=== PATIENT | male | born 1950 | race Caucasian/White ===

== ENCOUNTER 2016-05-21 10:45 | Inpatient (IN) | payer BC, MEDICARE ==
[~2016-05-21] VITALS: Ht 177.8 cm; Wt 82.6 kg
[~2016-05-21 10:45] MED LIST: ASPI81TA85 PO; ATOR1TAB19 PO; FINA5TAB2 PO; LITH300C PO; MULTCAP PO; MYRB25TA PO; ROZE8TAB9 PO; VITACAP31
[2016-05-21] MEDS ORDERED: SILE3TAB3 PO (11:04)
[2016-05-21] MEDS ORDERED: TERB250T57 PO (11:04)
[2016-05-21 11:34] LABS: MEAN CORPUSCULAR HEMOGLOBIN 32.2 pg (27.0-33.0); MEAN CORPUSCULAR HGB CONC 33.1 g/dl (32.0-36.5); MEAN CORPUSCULAR VOLUME 97.2 fl (80.0-96.0); PLATELET COUNT, AUTOMATED 203 k/mm3 (150-450); RED CELL DISTRIBUTION WIDTH 12.9 % (11.5-14.5); WHITE BLOOD COUNT 12.9 K/mm3 (4.0-10.0)
[2016-05-21 11:36] LABS: INR 1.06
[2016-05-21 11:48] LABS: BANDS 1 % (< 11)
[2016-05-21 11:49] LABS: ANISOCYTOSIS 1+
[2016-05-21 11:51] LABS: ANION GAP 6 MEQ/L (8-16); BLOOD UREA NITROGEN 26 MG/DL (7-18); CALCIUM LEVEL 10.5 MG/DL (8.8-10.2); CARBON DIOXIDE LEVEL 27 MEQ/L (21-32); CHLORIDE LEVEL 110 MEQ/L (98-107); CREATININE FOR GFR 2.04 MG/DL (0.70-1.30); GLUCOSE, FASTING 117 MG/DL (80-110); POTASSIUM SERUM 4.5 MEQ/L (3.5-5.1); SODIUM LEVEL 143 MEQ/L (136-145)
[2016-05-21] MEDS ORDERED: levETIRAcetam INJection 1,000 MG in D5W 100 ML IV ONE (12:30)
[2016-05-21] MEDS ORDERED: FINA5TAB2 PO (12:55)
[2016-05-21] MEDS ORDERED: TYLE325T5 PO (12:55)
[2016-05-21] MEDS ORDERED: VITMTA PO (12:55)
[2016-05-21] MEDS ORDERED: ONDANSETRON 4 MG TAB (S0181) PO PRN (13:15)
[2016-05-21] MEDS ORDERED: ACETAMINOPHEN TAB 650MG DOSE (2X325MG) PO PRN (13:15)
[2016-05-21] MEDS ORDERED: PERCOCET 5MG/325MG TAB PO PRN (13:15)
[2016-05-21] MEDS ORDERED: ONDANSETRON 4MG/2ML VIAL (J2405) IV PRN (13:15)
[2016-05-21] MEDS: NS 1,000 ML IV SCH ×2 (13:30→23:36)
--- NOTE | 2016-05-21 13:52 | HPEPDOC ---
Medical History and Physical Date of Admission May 21, 2016 at 13:05 History and Physical HISTORY AND PHYSICAL Date of admission: 05/21/2016 PCP: Dr. Bird Powell Chief complaint: Episodes of confusion and difficulty with his speech HPI: 65-year-old male with bipolar disorder, hyperlipidemia, BPH, CKD stage 3, known lazy right eye who presents with 3-4 weeks of "spells." He states that during these spells, he notices changes in his speech, such as delay in speech, slurring of speech, and difficulty finding words. He also experiences confusion with these episodes. He is unable to identify anything that triggers these episodes. He also notes that they seem to self resolve. He is accompanied by one of the secretaries at the [facility], and she states that it appears this has all gotten worse since . 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 They drove him back to the residential home. The patient also has resting tremors, but he thinks that this is something he's had for a long time and he believes it's related to the lithium. Of note, the patient states that this cyst in his head is something he has known about, and he even saw Dr. Stern for it back in 2005. He states that he usually ends up seeing one of the PAs at their office, and he thinks it is approximately 1 year ago when he saw the PA. Also of note, the patient states that the psychiatrist he follows with for his lithium is in [place]. He states that his levels are checked once a year and he is due to have it checked again in September. He has never previously had any issues with his lithium level being too high. In the emergency department, he was evaluated by Dr. Cabrera, and loaded with Keppra.. Past medical history: Bipolar disorder, hyperlipidemia, BPH, right lazy eye, CK D stage III Past surgical history: Tonsillectomy, hernia repair Family history: He states that his parents are 94 years old and 96 years old and are both in good health Social history: He denies any tobacco use. He states he drinks approximately 1 alcoholic drink weekly. 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 Allergies: No known drug allergies Review of systems: General: Negative for fever and chills Eyes: Negative for vision changes and ocular discharge ENT: Negative for sore throat and nose bleed Cardiovascular: Negative for chest pain. Positive for palpitations. Respiratory: Negative for cough. Positive for shortness of breath GI: Negative for nausea, vomiting, diarrhea, constipation Musculoskeletal: Positive for chronic back pain Neuro: Negative for headache, numbness, tingling. Positive for intermittent dizziness, as well as changes in speech and confusion Psych: Negative for depression and suicidal ideation Endocrine: Positive for polyuria and polydipsia : Negative for dysuria Heme: Negative for bruising and bleeding Home meds: See below Physical exam: Vital signs: Vital Sign - Last 24 Hours 05/21/16 05/21/16 05/21/16 05/21/16 10:45 10:52 11:12 11:15 Temp 97.8 97.8 Pulse 76 Resp 16 16 B/P 156/83 156/83 144/76 Pulse Ox 99 99 93 O2 Delivery Room Air Room Air 05/21/16 05/21/16 05/21/16 05/21/16 11:27 11:42 11:45 11:57 Pulse 72 B/P 134/69 132/72 132/69 05/21/16 05/21/16 05/21/16 05/21/16 12:04 12:05 12:06 12:12 Pulse 73 79 83 B/P 132/68 145/72 132/68 155/72 145/67 145/67 145/72 05/21/16 05/21/16 12:15 12:27 Pulse 72 B/P 175/79 Pulse Ox 97 Gen.: awake, alert, no acute distress Eyes: disconjugate right gaze (known and chronic), normal sclera ENT: Dry mucous membranes Cardiovascular: RRR, no murmurs rubs or gallops Lungs: clear to auscultation bilaterally, no rales, rhonchi, or wheeze Abdomen: Soft, NT/ND, normal BS Musculoskeletal: normal range of motion Extremities: No peripheral edema Neuro: alert and oriented 3, normal speech, no focal deficits, no arm drift, no facial droop, finger to nose was more challenging on left than right but he was ablel to complete it on both Psych: Normal mood with congruent affect Labs and radiology: See below Creatinine 2.04 Myra level [address] read of the [address] of the head shows huge right subarachnoid cyst Assessment and plan: 65-year-old male with bipolar disorder, hyperlipidemia, BPH, CKD stage 3, known lazy right eye who presents with 3-4 weeks of "spells." He states that during these spells, he notices changes in his speech, such as delay in speech, slurring of speech, and difficulty finding words. He is admitted for a TIA/CVA workup, acute on chronic kidney disease, and chronic lithium toxicity. 1. Neurologic symptoms: The patient presents with a variety of neurologic symptoms including intermittent dizziness, confusion, and changes to his speech. It is quite possible that part of this is secondary to his chronic lithium toxicity. However, the CT of the head does show a huge right subarachnoid cyst, for which he has been seen by Dr. Cabrera in the emergency department. Dr. Cabrera will continue to follow the patient in consultation and manage that issue. Additionally, we will complete a TIA/CVA workup for the patient, as well as get an EEG to rule out seizure. MRI/MRA of the head and neck , as well as echo and fasting lipid panel have been ordered. The patient will be started on daily ASA. He was loaded with Keppra in the emergency department , and we'll continue him on 500mg by mouth twice a day. 2. Acute on chronic kidney disease stage III: The patient's baseline creatinine is in the mid ones. He presents with a creatinine of 2.04, and is obviously dry upon exam. We will hydrate him, and recheck his BMP. 3. Chronic lithium toxicity and bipolar disorder: The patient has been on lithium 300 mg for years. He states that he has not had it checked since last summer, at which point he reports that his levels were fine. We will hold his lithium for the time being, and hydrate him. We will also check a right upper quadrant ultrasound to rule out DIANA secondary to his lithium use. 4. Hyperlipidemia: Continue home statin 5. BPH: Continue home Proscar. We will be holding his home myrbetriq as we do not have this on formulary. DVT prophylaxis: SCDs Dispo: admit as an inpatient to the service of Dr. Azar CODE STATUS: Full code Vital Signs see above Laboratory Data Labs 24H Laboratory Tests 2 05/21/16 11:17: Activated Partial Thromboplast Time 36.0, Anion Gap 6L, Anisocytosis 1+, Atypical Lymphocytes 3, Band Neutrophils 1, White Blood Count 12.9H, Red Blood Count 4.57, Hemoglobin 14.7, Hematocrit 44.4, Mean Corpuscular Volume 97.2H, Mean Corpuscular Hemoglobin 32.2, Mean Corpuscular Hemoglobin Concent 33.1, Red Cell Distribution Width 12.9, Platelet Count 203, Neutrophils (%) (Auto) , Lymphocytes (%) (Auto) , Monocytes (%) (Auto) , Eosinophils (%) (Auto) , Basophils (%) (Auto) , Neutrophils # (Auto) , Lymphocytes # (Auto) , Monocytes # (Auto) , Eosinophils # (Auto) , Basophils # (Auto) , Blood Urea Nitrogen 26H, Creatinine 2.04H, Sodium Level 143, Potassium Level 4.5, Chloride Level 110H, Carbon Dioxide Level 27, Calcium Level 10.5H, Total Creatine Kinase 306, Creatine Kinase MB 6.7H, Creatine Kinase MB Relative Index 2.18, Glomerular Filtration Rate 35.0L, Large Unclassified Cells # , Large Unclassified Cells % , Myra Level 2.00H, Lymphocytes (Manual) 10L, Macrocytosis 1+, Neutrophils 86H, Platelet Estimate NORMAL, Prothromb Time International Ratio 1.06, Prothrombin Time 13.9, Troponin I < 0.02 CBC/BMP Laboratory Tests 05/21/16 11:17 Calcium Level 10.5 H, Total Creatine Kinase 306, Red Blood Count 4.57, Mean Corpuscular Volume 97.2 H, Mean Corpuscular Hemoglobin 32.2, Mean Corpuscular Hemoglobin Concent 33.1, Red Cell Distribution Width 12.9, Neutrophils (%) (Auto ) , Lymphocytes (%) (Auto) , Monocytes (%) (Auto) , Eosinophils (%) (Auto) , Basophils (%) (Auto) , Neutrophils # (Auto) , Lymphocytes # (Auto) , Monocytes # (Auto) , Eosinophils # (Auto) , Basophils # (Auto) Home Medications Scheduled Atorvastatin Calcium (Atorvastatin Calcium) 10 Mg Tab 10 MG PO QHS Finasteride (Finasteride) 5 Mg Tab 5 MG PO QHS Myra Carbonate (Myra Carbonate) 300 Mg Cap 300 MG PO TID Mirabegron Base (Myrbetriq) 25 Mg Tab 25 MG PO QHS Multivitamins *[facility] STOCKED* (Thera M Plus *[facility] STOCKED*) 1 Tab Tab 1 TAB PO QHS Scheduled PRN (Silenor) 3 Mg Tab 6 MG PO QHS PRN PRN SLEEP Acetaminophen (Tylenol) 325 Mg Tab 650 MG PO Q4H PRN PRN PAIN Allergies Coded Allergies: No Known Drug Allergy (Verified Allergy, Unknown, 06/12/12) ISRAEL ALFORD May 21, 2016 13:52
[2016-05-21] MEDS ORDERED: LORazepam 2 MG/ML VIAL (J2060) IV STA (19:07)
--- NOTE | 2016-05-21 19:51 | ECGEPIP ---
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
--- NOTE | 2016-05-21 21:10 | REPUSA ---
CLINICAL HISTORY: Aphasia. TECHNIQUE: Three dimensional [id number]-fx-jmnxmw angiography is performed of the [place]. The tirso dy was performed without IV contrast agent. FINDINGS: The supraclinoid portions of the internal carotid arteries are of normal shape. The normal bifurcation is seen. The middle cerebral arteries are unremarkable in appearance. The posterior circu lation is visualized and shows no evidence of occlusion or aneurysm formation. The basilar tip is see n and shows no aneurysm formation. There is no evidence of beading to suggest vasculitis. IMPRESSION: MRA of the [place] is within normal limits. Thank you for your kind referral of this patient.
[2016-05-21 21:15] LABS: CALCIUM LEVEL 9.8 MG/DL (8.8-10.2); CREATININE FOR GFR 1.86 MG/DL (0.70-1.30); GLOMERULAR FILTRATION RATE 38.9 (>49); POTASSIUM SERUM 4.2 MEQ/L (3.5-5.1)
[2016-05-21 21:40] VITALS: BP 138/78
[2016-05-21 21:41] VITALS: BP 158/82
[2016-05-21 21:43] VITALS: BP 170/92
[2016-05-21] MEDS: levETIRAcetam 250MG TABLET (KEPPRA) PO SCH (23:35)
[2016-05-21] MEDS: ASPIRIN 81 MG ENTERIC TAB PO SCH (23:35)
[2016-05-21] MEDS: ATORVASTATIN 10 MG TAB PO SCH (23:35)
[2016-05-21] MEDS: FINASTERIDE 5 MG TAB PO SCH (23:36)
[2016-05-21] MEDS: MULTIVITAMINS/MINERALS THERAP 1 TAB PO SCH (23:36)
[2016-05-21 23:59] VITALS: BP 162/78
[2016-05-22 04:45] VITALS: BP 152/78
--- NOTE | 2016-05-22 05:40 | REP ---
REASON: Dizziness with stroke like symptoms. COMPARISON: 10/26/2006 which is the latest prior. The technique utilized in obtaining the radiograph has magnified the cardiac silhouette and accentuated the interstitial markings. FINDINGS: The superior mediastinal structures are midline. The cardiac silhouette is unremarkable in size, shape, and position. The diaphragmatic surfaces of the lungs are regular, and the costophrenic angles are clear. The pulmonary fregoso are clear. The imaged osseous structures are intact. IMPRESSION: There is no acute cardiopulmonary disease. Signed by Christopher Cook DO 05/22/2016 12:04 P
[2016-05-22 05:51] LABS: MEAN CORPUSCULAR HEMOGLOBIN 32.2 pg (27.0-33.0); MEAN CORPUSCULAR HGB CONC 32.6 g/dl (32.0-36.5); MEAN CORPUSCULAR VOLUME 98.9 fl (80.0-96.0); PLATELET COUNT, AUTOMATED 225 k/mm3 (150-450); RED CELL DISTRIBUTION WIDTH 12.9 % (11.5-14.5); WHITE BLOOD COUNT 12.8 K/mm3 (4.0-10.0)
--- NOTE | 2016-05-22 05:57 | REP ---
REASON: Stroke like symptoms. PRIORS: None. There is a large, and in fact, huge cystic structure on the right measuring 8.2 x 7.1 cm. This large cyst is causing thinning of the right temporal and parietal bones. The cyst is causing compression of the ipsilateral lateral ventricle, however, there is no evidence of ventricular obstruction. There is no evidence of an acute intracranial hemorrhage. The deep white matter is age appropriate. IMPRESSION: 1. There is what is most consistent with a large, and in fact, huge right hemispheric arachnoid cyst arising from the sylvian fissure. This cystic structure is causing resultant findings as described above. 2. No evidence of acute intracranial hemorrhage or other pathology. Signed by Christopher Cook DO 05/22/2016 12:04 P
[2016-05-22 06:03] LABS: CALCIUM LEVEL 9.8 MG/DL (8.8-10.2); CREATININE FOR GFR 1.79 MG/DL (0.70-1.30); GLOMERULAR FILTRATION RATE 40.6 (>49); POTASSIUM SERUM 3.8 MEQ/L (3.5-5.1)
[2016-05-22 08:00] VITALS: BP 147/72
[2016-05-22] MEDS ORDERED: D5W 1,000 ML IV SCH ×2 (08:15→09:30)
--- NOTE | 2016-05-22 08:59 | REP ---
LIMITED ABDOMINAL ULTRASOUND: CLINICAL: Abdominal distension with history of chronic lithium use. TECHNIQUE: Real-time mcpherson scale ultrasound examination using curved array transducer. FINDINGS: Liver and visualized pancreas are normal in contour, size, and echogenicity without focal hepatic or pancreatic lesions identified. The gallbladder is normal and without gallstones, wall thickening, or pericholecystic fluid. No biliary ductal dilatation is appreciated and the common bile duct measures 5 mm in diameter. The right kidney is normal in reniform shape without hydronephrosis and measures 10.4 x 5.0 x 5.1 cm. No ascites in the visualized right upper quadrant. IMPRESSION: Normal right upper quadrant ultrasound examination. Signed by Saurabh Allen MD 05/26/2016 11:05 A
[2016-05-22] MEDS: ASPIRIN 81 MG ENTERIC TAB PO SCH (09:20)
[2016-05-22] MEDS: levETIRAcetam 250MG TABLET (KEPPRA) PO SCH ×2 (09:20→21:11)
[2016-05-22 09:26] LABS: LITHIUM LEVEL 1.31 MEQ/L (0.60-1.20)
[2016-05-22 13:57] LABS: CALCIUM LEVEL 10.6 MG/DL (8.8-10.2); CREATININE FOR GFR 1.99 MG/DL (0.70-1.30); POTASSIUM SERUM 4.8 MEQ/L (3.5-5.1)
--- NOTE | 2016-05-22 14:46 | IPN ---
DATE: 05/22/2016 Time patient was seen was this morning at 08:15. Patient has been seen and examined at the bedside. No acute events overnight. The patient stated that he has improved in terms of his slurred speech and he is no longer confused. The patient also stated that he has been on lithium for at least 12 years and he had a long discussion with his primary care and his psychiatrist regarding lithium and he stated that he saw someone in [place], whose name is Conner Sanchez, who stated that he should be kept on lithium. Otherwise, the patient denies any weakness on any side of his body, any additional slurred speech or any changes with vision, smell, hearing or taste. Denies any other current new complaints. PHYSICAL EXAMINATION: VITAL SIGNS: Temperature 97.2, pulse 78, respirations 19, blood pressure 147/72, oxygen saturating at 99% on room air. GENERAL: Patient is a pleasant elderly male who looks younger than his age. However, he was having tremors all over his body. Has some slurred speech and does have a lazy eye on the left side. HEENT: Normocephalic. Atraumatic. Extraocular muscles intact. Mucous moist. NECK: Supple. No lymphadenopathy. CARDIOVASCULAR: Regular rate and rhythm, S1 and S2, no murmurs, rubs or gallops. LUNGS: Clear to auscultate bilaterally. No wheezing, rales or rhonchi. ABDOMEN: Positive bowel sounds. Soft, nontender. Nondistended. No peritoneal signs. No ecchymosis. EXTREMITIES: No edema, clubbing or cyanosis. SKIN: Warm and dry. NEURO: The patient has reduced peripheral vision bilaterally. In addition he has hyperspasticity, hyperreflexia, and reduced muscle strength bilaterally. LABORATORIES: WBC 12.8, hemoglobin 14.3, hematocrit 43.8 with a platelet count of 225, and MCV of 98.9. Sodium 154, potassium 3.8, chloride 125, bicarb 26, BUN 22, creatinine 1.79, GFR 40.6, fasting glucose 114, calcium 9.8, magnesium 3, triglycerides 88, cholesterol 117, LDL 66.4, HDL 33. TSH was 0.673. Coagulations: Yesterday PT was 13.9, INR 1.06, PTT 36. The patient's toxicology screen lithium yesterday was 2, this morning was 1.31. No cultures. The patient had an abdominal ultrasound yesterday which shows normal right upper quadrant ultrasound examination. The patient also had a brain MRA yesterday, which shows [place] is within normal limits. The patient will have a repeat MRI of the brain this morning. MRI was not completed yesterday due to the patient could not tolerate both MRA and MRI at the same time. The patient had a portable chest x-ray yesterday, which shows no acute process. The patient had a CT scan yesterday, which was consistent with a large, huge right hemispheric arachnoid cyst from Sylvian fissure and the cystic structure also causing thinning of the right temporal and parietal bones, and also causing compression of the ipsilateral lateral ventricle. However, no evidence of ventricular obstruction. ASSESSMENT/PLAN: 65-year-old male with a past medical history of bipolar, hyperlipidemia, BPH, right lazy eye, chronic kidney disease stage III, who presented with: 1. Neurological changes with confusion and slurred speech, likely secondary to his lithium toxicity, acute versus chronic, versus large subarachnoid cyst, versus metabolic encephalopathy. Dr. Cabrera from neurosurgery was consulted and recommended MRI/MRA of the head and the neck and also CT angio as well as an EEG and a lithium panel. The patient also has been loaded with Keppra. Currently will continue neuro checks every 4 hours. Continue seizure precautions. While finishing the patient's MRI this morning, due to the patient could not tolerate both MRI and MRA yesterday, and in addition, neurology Dr. Merino has been consulted. Will follow his recommendation as well. The patient does follow with Dr. Stern as an outpatient. In addition, lithium level came back to be reduced to yesterday. Yesterday is was 2, today is 1.3. The patient also reports improvement in his symptoms. Will continue to monitor the patient. 2. Acute on chronic kidney disease, stage III. The patient's creatinine has improved from 2.0 to 1.7. 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 The patient has been started on D5W. Will trend the patient's BMP and will stop D5W once the BMP has returned to normal range. 3. Chronic lithium toxicity and bipolar disorder. The patient stated that he had a discussion with primary care and also his psychiatrist and his psychiatrist recommended not to stop his lithium in the past. Therefore, he has kept on that for at least 12 years. In addition, the right upper quadrant ultrasound did not show any abnormal findings. Therefore, the patient does not have DIANA. Will continue to monitor. 4. Hyperlipidemia. Continue home statin. 5. Benign prostatic hypertrophy (BPH). Continue Proscar. 6. Deep vein thrombosis (DVT) prophylaxis. Sequential compression devices (SCD). DISPOSITION: Will rule out the etiology of the patient's symptoms. Will continue to hold lithium. Will obtain CT angio once the patient's kidney function has improved and will follow Dr. Merino and Dr. Cabrera's recommendation. The patient is a FULL CODE. The patient has been discussed with attending doctor, Dr. Azar. My preceptor for this patient encounter was Dr. Suraj Azar. The preceptor was physically present in the building during the encounter and was fully available. As needed, all aspects of the patient interview, examination, medical decision making process, and medical care plan development were reviewed and approved by the preceptor. The preceptor is aware and concurs with the plan as stated in the body of this note and will attest to such by his/her cosignature.
[2016-05-22 16:00] VITALS: BP 149/76
[2016-05-22 16:42] LABS: CALCIUM LEVEL 10.4 MG/DL (8.8-10.2); CREATININE FOR GFR 1.95 MG/DL (0.70-1.30); GLOMERULAR FILTRATION RATE 36.8 (>49); POTASSIUM SERUM 4.3 MEQ/L (3.5-5.1)
--- NOTE | 2016-05-22 19:03 | REP ---
MRI study of the brain without contrast: History: Aphasia. I am informed by the technologist that these images representing a partial MRI study of the brain were found on the MR imaging modality unsent to or PACS system. The MR ANGIO performed at the same time has already been dictated. Technique: Axial turbo spin-echo and FLAIR imaging is acquired. The sequences were repeated because of motion artifact. The remainder the exam could not be accomplished due to the patient's inability to cooperate and remain motionless. The exam was therefore aborted. Comparison study: MRI study of the brain from 05/18/2005. Findings: The previously noted large subarachnoid cyst is again seen on the right side in the temporal-parietal distribution unchanged from the 2005 prior study when it measured up to 11 cm in dimension. There is subtle mass effect and shift to the midline and to the left and there are erosive changes on the inner table of the skull in the right parietal region again unchanged. Ventricular size is unchanged. No new lesion is seen on these images. There is some motion artifact. Impression: Supratentorial subarachnoid cyst 11 cm in greatest diameter persists in the right temporal and parietal distribution unchanged from the 2005 prior study. Motion artifact degrades images. Incomplete study. Signed by Trino Alvarado MD 05/22/2016 07:23 P
[2016-05-22 20:43] VITALS: BP 140/73
[2016-05-22 20:59] LABS: CALCIUM LEVEL 9.8 MG/DL (8.8-10.2); CREATININE FOR GFR 1.91 MG/DL (0.70-1.30); GLOMERULAR FILTRATION RATE 37.7 (>49); POTASSIUM SERUM 4.2 MEQ/L (3.5-5.1)
[2016-05-22] MEDS: FINASTERIDE 5 MG TAB PO SCH (21:11)
[2016-05-22] MEDS: ATORVASTATIN 10 MG TAB PO SCH (21:11)
[2016-05-22] MEDS: MULTIVITAMINS/MINERALS THERAP 1 TAB PO SCH (21:11)
[2016-05-22] MEDS: D5W 1,000 ML IV SCH (21:12)
[2016-05-22 23:59] VITALS: BP 134/70
[2016-05-23 04:45] VITALS: BP 116/63
[2016-05-23 05:47] LABS: MEAN CORPUSCULAR HGB CONC 31.8 g/dl (32.0-36.5); MEAN CORPUSCULAR VOLUME 100.5 fl (80.0-96.0); PLATELET COUNT, AUTOMATED 219 k/mm3 (150-450); WHITE BLOOD COUNT 12.9 K/mm3 (4.0-10.0)
[2016-05-23 05:53] LABS: CALCIUM LEVEL 9.6 MG/DL (8.8-10.2); CREATININE FOR GFR 1.92 MG/DL (0.70-1.30); GLOMERULAR FILTRATION RATE 37.5 (>49); MAGNESIUM LEVEL 2.7 MG/DL (1.8-2.4); POTASSIUM SERUM 3.7 MEQ/L (3.5-5.1)
--- NOTE | 2016-05-23 06:03 | IPN ---
DATE: 05/22/2016 Time patient was seen was this morning at 0815 hours. Patient has been seen and examined at bedside. No acute event overnight. Patient admits to feeling somewhat better. DICTATION ENDED My preceptor for this patient encounter was Suraj zAar MD. The preceptor was physically present in the building during the encounter and was fully available. As needed, all aspects of the patient interview, examination, medical decision making process, and medical care plan development were reviewed and approved by the preceptor. The preceptor is aware and concurs with the plan as stated in the body of this note and will attest to such by his/her co-signature.
[2016-05-23] MEDS: D5W 1,000 ML IV SCH (06:42)
[2016-05-23 07:23] LABS: BANDS 1 % (< 11); POIKILOCYTOSIS 1+
--- NOTE | 2016-05-23 07:27 | CR ---
DATE OF CONSULTATION: 05/22/2016 REFERRING PHYSICIAN: Dr. Marily Garcia REASON FOR CONSULTATION: Dizziness, tremor and slurred speech. HISTORY OF PRESENT ILLNESS: The patient is a 65-year-old male with history of bipolar disorder and chronic kidney disease who developed episodes of slurred speech, dizziness and difficulty finding words. He also felt confusion during these episodes. These episodes started 10 days ago. He was told by a hand tool filer at [employer] that he should seek medical attention. The patient has a history of a right-sided brain cyst since 2001. He was seen by neurosurgery at that time who did not recommend any surgical intervention. This cyst remains stable compared to his 2006 MRI brain until his current MRI brain. He has intermittent mild neck pain. He denies any headaches or back pain. He denies any numbness or weakness in his arms and legs. He denies any difficulty with memory. He denies any falls or loss of consciousness. PAST MEDICAL HISTORY: 1. Bipolar disorder. 2. Dyslipidemia. 3. Prostate enlargement. 4. Chronic kidney disease stage III. 5. Left eye exotropia. 6. Tonsillectomy. 7. Hernia repair. CURRENT MEDICATIONS: - lithium - finasteride 5 mg by mouth daily SOCIAL HISTORY: Denies smoking or illicit drugs. He drinks alcohol socially. 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 FAMILY HISTORY: His parents are 94 and 96 years old and are in good health. ALLERGIES: None. REVIEW OF SYSTEMS: All systems were reviewed and were found to be noncontributory except as mentioned in history present illness. PHYSICAL EXAMINATION: Temperature 96.6, pulse 75, respiratory rate 22, blood pressure 149/76, 98% saturation on room air. Heart: Regular rate rhythm. Lungs: Clear to auscultation. Abdomen: Soft, nontender, nondistended. Neurological Exam: Patient is awake, alert, oriented to month, year and day of week. He is unable to tell me the exact date. He is oriented to place and name of president. Normal speech, comprehension and repetition. Extraocular muscles are intact except he has left eye congenital exotropia. No facial weakness. Tongue and uvular are midline. 5/5 strength in all four extremities. Deep tendon flexes 1+ throughout. Normal sensation. His gait is unsteady. He has bilateral hand and leg asterixis. DIAGNOSTIC STUDIES: His MRI scan of brain was reviewed and compared to his scan in 2006 and showed a large right parietal cyst which may represent congenital malformation such as porencephaly or schizencephaly. This is unchanged and stable. His lithium level was 2.0 and decreased to 1.3. WBCs were 12.8 with sodium 155 and creatinine 2.04 and decreased to 1.95. ASSESSMENT: 1. Suspected lithium toxicity. 2. 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 Less likely differential diagnosis includes arachnoid cyst in the right parietal lobe. 3. Episode of dizziness, slurred speech and tremor related to lithium toxicity. 4. Seizures are less likely. PLAN: 1. Await his electroencephalogram (EEG). 2. If EEG does not show any epileptiform abnormalities, will discontinue Keppra. 3. 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 It remains unchanged compared to his MRI brain of 11 years ago in 2006. 4. I would advise him to talk to his psychiatrist to see if they can lower the dose of his lithium as it may help prevent future episodes of toxicity with his history of chronic kidney disease. Alternate medications for bipolar disorder such as Depakote, Trileptal, Lamictal or Tegretol should be considered. He will follow with his psychiatrist, Dr. Conner Sanchez, in [place], [place]. 5. Follow with our office with Chloé Francis in a couple of weeks after hospital discharge.
[2016-05-23 08:00] VITALS: BP 135/68
[2016-05-23] MEDS: ASPIRIN 81 MG ENTERIC TAB PO SCH (08:23)
[2016-05-23] MEDS: levETIRAcetam 250MG TABLET (KEPPRA) PO SCH ×2 (08:24→20:09)
[2016-05-23 12:00] VITALS: BP 144/79
[2016-05-23 16:00] VITALS: BP 130/70
--- NOTE | 2016-05-23 16:12 | EEG ---
DATE OF PROCEDURE: 05/22/2016 REFERRING PHYSICIAN: Dr. Suraj Azar DIAGNOSIS: Episodes of confusion. EEG NUMBER: [id number]. CLINICAL HISTORY: The patient is a 65-year-old male with a history of spells in which he notices changes in his speech, slurring of speech and difficulty finding words. He also experiences confusion with these episodes. He is unable to identify anything that triggers these episodes. They resolve on their own. He is currently taking Proscar, Keppra, etc. TECHNICAL DESCRIPTION: This digital EEG was recorded by 21 scalp, ear and two EKG electrodes and was reviewed in bipolar and referential montages following reformatting in 10-20 international electrode placement system. INTERPRETATION: The patient was noted to be in awake and drowsy states during this EEG. Resting awake background rhythm consisted of 5-6 Hz theta activity measuring 15-40 microvolts in amplitude with underlying 3-4 Hz delta activity. Slight attenuation of background rhythm was noted in the right central and parietal head region. Hyperventilation could not be performed. Stage I and II sleep was reviewed and was symmetric bilaterally. Photic stimulation remained unremarkable. EKG revealed normal sinus rhythm. Right central and parietal spikes and sharp waves were noted in wakefulness and stage II sleep. No clinical or electrographic seizures were recorded. CONCLUSION: This EEG in awake, drowsy states, stage I and II sleep is abnormal due to presence of generalized slowing and disorganization of background consistent with nonspecific diffuse cerebral dysfunction such as seen in encephalopathy due to multiple potential causes including toxic, metabolic, medication related, infectious, autoimmune, or multifocal structural abnormalities. In addition, right central and parietal voltage attenuation and epileptiform discharges were seen consistent with focal cortical, structural or functional abnormality with epileptic potential. Clinical correlation is recommended.
--- NOTE | 2016-05-23 16:26 | IPN ---
DATE: 05/23/2016 Time seen: 8:45 a.m. The patient has been seen and examined at bedside. No acute events overnight. The patient feels about the same today. Denies any increased weakness on any side of the body, any change of sensations. Still admits to a tremor of bilateral hands. Admits to some confusion and memory loss. Denies any fever or chills, any chest pain, trouble breathing, abdominal pain, nausea, vomiting, diarrhea or constipation. Denies any other current new complaints. PHYSICAL EXAMINATION: VITAL SIGNS: Temperature was 97.8, pulse 77, respirations 20, blood pressure 135/68, oxygen saturation 98% on room air. GENERAL: The patient is pleasant, elderly male who looks younger than his age. Does not appear to be in distress. However, does have a flat affect. Laying comfortably in bed with head elevated at 30 degrees. HEENT: Normocephalic, atraumatic. Extraocular motor was intact. However, the patient does have a lazy eye on the right side. Mucosal membranes moist. NECK: Supple. No neck lymphadenopathy. CARDIOVASCULAR: Regular rate and rhythm. 2/6 systolic heart murmur. LUNGS: Clear to auscultation bilaterally. No wheezes, rales or rhonchi. ABDOMEN: Positive bowel sounds, obese, no peritoneal signs. No ecchymosis. EXTREMITIES: No edema, clubbing or cyanosis. There were essential tremor in bilateral hands. SKIN: Warm and dry. NEUROLOGICAL: Cranial nerves II through XII intact. The patient also has hyperspasticity and reduced peripheral vision bilaterally. LABS: WBC 12.9, hemoglobin 14.2, hematocrit is 44.6, with a platelet count of 219 and MCV of 100.5. Sodium 115, potassium 3.7, chloride 117, bicarbonate 27, BUN 117, creatinine 1.92. GFR 37.5%. Fasting glucose 111. Osmolality serum and urine are pending. Calcium 9.6, magnesium was elevated 2.7. ADH level is currently pending. The patient has a repeat lithium level tomorrow, which is pending. No new cultures. No new imaging. ASSESSMENT AND PLAN: 65-year-old male with past medical history of bipolar, hyperlipidemia, benign prostatic hypertrophy (BPH), right lazy eye, chronic kidney disease stage III who presented with: 1. Neurological changes with confusion, slurred speech, tremor, likely secondary to lithium toxicity, acute versus chronic versus a large subarachnoid cyst versus metabolic encephalopathy. Dr. Merino from neurology was consulted and has seen the patient yesterday. He believes this is likely secondary to lithium toxicity and recommended that the patient should have a discussion with his psychiatrist regarding reducing the lithium dose due to he right now does have worsened renal function. Otherwise, Dr. Cabrera from neurosurgery was also initially consulted and recommended MRI and MRA of the head and neck, and also CT angio as well as EEG. Will followup with EEG and per neurology recommendation will stop the Keppra of EEG is normal. Otherwise will continue neuro checks every 4 hours for now. Continue seizure precaution. The patient did complete MRI finding this morning. Did not show any acute findings. Will also repeat lithium level tomorrow and the patient should followup with Dr. Stern as outpatient once the patient goes home. 2. Acute on chronic kidney disease, stage III. Kidney function has not improved much since yesterday. Still currently 1.9. 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 The patient also has hypernatremia which improved only slightly on D5W overnight. Dr. Hodgson from nephrology has been consulted. Has ordered urine osmolarity, serum osmolarity, ADH level and also urine sodium level. Will followup. Continue to monitor. 3. Chronic lithium toxicity and bipolar disorder. Dr. Merino from neurology has recommended the patient followup with psychiatrist again regarding change in the dose or change in the medication. Will continue to monitor. The patient did have a right upper quadrant ultrasound and did not show any acute findings. Will continue to monitor. 4. Hyperlipidemia. Continue home statin. 5. Benign prostatic hypertrophy (BPH). Continue Proscar. 6. Deep venous thrombosis (DVT) prophylaxis. Sequential compression devices (SCDs) currently. DISPOSITION: Will rule out the etiology of patient's symptoms. At this point it is likely secondary to lithium toxicity per urology. Will order CT angio as patient's kidney function improves. The patient also has shortness of breath. Will continue to monitor. The patient is currently a FULL CODE. The patient has been discussed with attending doctor, Dr. Garcia. My preceptor for this patient encounter was Dr. Marily Garcia. The preceptor was physically present in the building during the encounter and was fully available. As needed, all aspects of the patient interview, examination, medical decision making process, and medical care plan development were reviewed and approved by the preceptor. The preceptor is aware and concurs with the plan as stated in the body of this note and will attest to such by his/her cosignature.
[2016-05-23] MEDS: POTASSIUM CHLORIDE INJ 10 MEQ in D5W 1,000 ML IV SCH (16:49)
--- NOTE | 2016-05-23 18:06 | ECHO ---
DATE OF PROCEDURE: 05/23/2016 Age: 65 Gender: Male Height: 70 inches Weight: 194 pounds Body surface area: 2.06 sq m Patient location: Inpatient, PCU, room 3216 REFERRING PHYSICIAN: Dr. Marily Garcia INDICATION: Transient ischemic attack (TIA). 2-D MEASUREMENTS: RV: 3.1 cm LV: 4.0 cm Septum: 1.1 cm Posterior wall: 1.1 cm Aortic root: 3.8 cm LA: 3.4 cm LVEF: 75% DOPPLER MEASUREMENTS: AV: 1.5 m/s LVOT: 1.2 m/s LVOT diameter: 1.8 cm MV-E: 51, A: 79, EA ratio: 0.6 Early mitral deceleration time: 254 ms E prime: 4, A prime 9, E/E prime ratio: 12.7 PV: 0.6 m/s Pulmonary artery acceleration time: 123 ms PASP: 24 mmHg IVC: 1.0 cm COMMENTS: Normal sinus rhythm without intraventricular conduction disturbance. Normal cardiac chamber sizes and wall thickness. On real-time imaging from the parasternal and projections wall motion was symmetrical and hyperkinetic. Normal-appearing mitral valvular apparatus and leaflet excursion with no posterior systolic buckling. Three equal size aortic cusps of normal thickness and cusp separation. Slightly dilated aortic root but normal ascending aortic diameter. No apparent intracardiac mass or pericardial effusion. Color flow Doppler study taken from the parasternal and projection showed no apparent mitral or aortic insufficiency and only trace tricuspid insufficiency. Guided continuous wave Doppler of his aortic valve showed a normal peak systolic velocity against left ventricle (LV) outflow tract obstruction. Pulsed and continuous wave Doppler of his LV inflow tract taken from the apical four-chamber projection showed normal diastolic filling velocities against mitral stenosis. There was a slightly more prominent late diastolic / atrial dependent filling pattern. Diastolic dysfunction was further confirmed by a prolonged early mitral deceleration time and tissue Doppler of his mitral annulus. However, his current estimated mean left atrial pressure was only upper limits of normal. Pulsed and continuous wave Doppler of his pulmonary trunk showed a normal peak systolic velocity against right ventricle (RV) outflow tract obstruction. His pulmonary artery acceleration time was normal against an elevated pulmonary vascular resistance. We attempted to further estimate his right ventricular systolic pressure using guided continuous wave Doppler of his tricuspid valve but could not get a clear spectral envelope. His inferior vena cava was of normal size with normal respiratory collapse against an elevated central venous pressure. CONCLUSIONS: Unable to detect an intracardiac source of embolic material. Echocardiographic / Doppler findings within normal limits for his age.
[2016-05-23 19:35] LABS: OSMOLALITY URINE 118 MOSM/KG (500-800)
[2016-05-23] MEDS: FINASTERIDE 5 MG TAB PO SCH (20:09)
[2016-05-23] MEDS: ATORVASTATIN 10 MG TAB PO SCH (20:09)
[2016-05-23] MEDS: MULTIVITAMINS/MINERALS THERAP 1 TAB PO SCH (20:09)
[2016-05-23 20:38] VITALS: BP 150/75
--- NOTE | 2016-05-23 23:42 | CR ---
DATE OF CONSULTATION: 05/23/2016 NEPHROLOGY CONSULTATION FOR: Suraj Azar MD REASON FOR CONSULTATION: Hypernatremia and possible nephrogenic diabetes insipidus. HISTORY OF PRESENT ILLNESS: Reverend Taylor is a 65-year-old male who was admitted to [facility] 2 days ago with episodes of confusion and difficulty with speech. He has a known history of bipolar disorder, hyperlipidemia, benign prostatic hypertrophy and chronic kidney disease stage III. He has been on chronic lithium treatment for his bipolar disorder. He was found to have a lithium level of 2.0. Since admission, he had been treated with intravenous fluids including normal saline initially, and his sodium level which was 143 on admission went up to as high as 155. He is now being treated with IV D5W and his sodium level has come down to only 150. 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 He has been seen by neurology and neurosurgery. His medications have been adjusted and lithium is currently on hold. He has been started on Depakote. A nephrology consultation was requested today, and the patient is seen this morning on his bedside. He has a sitter in the room. PAST MEDICAL HISTORY: Significant for: 1. Bipolar disorder. 2. Hyperlipidemia. 3. BPH. 4. Stage III of chronic kidney disease. 5. Right lazy eye with exophthalmos. PAST SURGICAL HISTORY: Significant for: Hernia repair. Tonsillectomy. FAMILY HISTORY: His parents are both alive and 94 and 96 years old and are in good health. 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 He denies any tobacco use. He drinks alcoholic drink once a week. ALLERGIES: No known drug allergies.. MEDICATIONS: HOME MEDICATIONS: Include atorvastatin 10 mg daily, Proscar 5 mg daily, lithium carbonate 300 mg three times a day, Myrbetriq 25 mg at bedtime and a multivitamin one tablet daily. He takes Tylenol as needed. CURRENT MEDICATIONS IN THE HOSPITAL: Include IV fluid D5W, Lipitor 10 mg daily, Proscar 5 mg daily, multivitamin one tablet daily, Keppra 500 mg twice a day, Percocet one tablet as needed every 4 hours for pain, Zofran 4 mg every 6 hours as needed for nausea, aspirin 81 mg daily and Zofran injection as needed for nausea. REVIEW OF SYSTEMS: At the time of my visit, the patient is resting comfortably. We did wake him up. He denies any headache, there is no fever or chills. Ears, nose and throat are unremarkable. He has a known history of right lazy eye. Cardiovascular system negative for dyspnea or chest pain. Respiratory system negative for cough or hemoptysis. He denies any dyspnea, orthopnea or leg edema. GI system is significant for nausea. He denies any vomiting or diarrhea. system is significant for history of BPH. He denies any dysuria or hematuria. Musculoskeletal system negative for leg edema. He denies any arthralgias. Hematological system is negative for anemia or easy bruising. There is no anticoagulation. Psychosocial system is significant for bipolar disorder. Neurological system is significant for slurred speech on admission and difficulty finding words. He has a known history of a brain cyst, which is unchanged on his recent MRI. Skin is negative for rash or ulcers. Endocrine system is negative for diabetes or thyroid problems. PHYSICAL EXAMINATION: Temperature 97.8 degrees Fahrenheit, heart rate 76 per minute and respiratory rate 20 per minute. Blood pressure 135/68 mmHg and oxygen saturation 98% on room air. Head is atraumatic. Sclerae is anicteric. Exophthalmos of the right eye is present. Ears, nose and throat are unremarkable. Neck is supple and without jugular venous distention (JVD) or thyroid enlargement. Trachea is midline. Heart sounds are regular and lungs clear to auscultation. Abdomen: Soft and nontender and without palpable organomegaly. Bowel sounds are normal. Extremities have no cyanosis or clubbing. Skin has no rash or ulcers. Neurologically, he is awake, alert and oriented at present. LABORATORY DATA: On admission on 05/21/2016, his sodium level was 143 and potassium 4.5, BUN 26 and creatinine 2.04. Calcium level was 10.5 at that time. On 05/22/2016, his sodium level went up to 156, chloride 125, BUN 22 and creatinine 1.79. At that time, he was receiving IV normal saline. His magnesium level was 3.0. This morning, sodium level is 150, potassium 3.7, chloride is down to 117, BUN 20 and creatinine 1.92, glucose 111 and calcium 9.6. Magnesium level is 2.7 now. [place] level was 2.0 on admission and it is now 1.31. Abdominal ultrasound was reported normal without any gallbladder problems or gallstones. His right kidney is 10.4 x 5.0 cm. Brain MRI showed 11 cm cyst in the temporal and parietal distribution, which is unchanged compared with 2006 prior study. MRA was negative. PROBLEMS: 1. Hypernatremia, most likely related to lithium toxicity. The patient did receive IV normal saline, and his sodium level increased from normal at the time of admission to 156 about 18 hours later. Now, he is receiving IV D5W which is helping to improve his sodium level. His urine output so far has been only mildly negative with a total negative balance of 675 mL. 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 At present, we do not have any urine studies available. We will send a urinalysis, urine sodium, urine osmolality, along with serum osmolality and a serum antidiuretic hormone level. I would recommend to continue with current IV fluid and liberal oral fluid intake. 2. [place] toxicity. The patient did have lithium toxicity on admission, which has improved significantly though it is still slightly elevated than normal range. The patient has good urine output and stable kidney function. This is likely to resolve over the next 12-24 hours. We will continue to monitor closely. 3. Chronic kidney disease. The patient is known to have stage III of chronic kidney disease at baseline. His kidney function does not seem to have any significant change since admission. He does not have metabolic acidosis or any uremic symptoms. We will continue to monitor his kidney function while he is here in the hospital. I thank you for involving me in the care of Mr. Taylor. I will follow him along with you.
[2016-05-23 23:45] VITALS: BP 141/72
[2016-05-24 03:05] VITALS: BP_SYST 145; BP_SYST 151; BP_SYST 154; BP_DIAS 73; BP_DIAS 76; BP_DIAS 77
[2016-05-24] MEDS: POTASSIUM CHLORIDE INJ 10 MEQ in D5W 1,000 ML IV SCH (03:33)
[2016-05-24 06:15] LABS: CALCIUM LEVEL 9.4 MG/DL (8.8-10.2); CREATININE FOR GFR 1.85 MG/DL (0.70-1.30); GLOMERULAR FILTRATION RATE 39.1 (>49); MAGNESIUM LEVEL 2.7 MG/DL (1.8-2.4); POTASSIUM SERUM 3.9 MEQ/L (3.5-5.1)
[2016-05-24 06:39] LABS: MEAN CORPUSCULAR HEMOGLOBIN 31.4 pg (27.0-33.0); MEAN CORPUSCULAR HGB CONC 31.5 g/dl (32.0-36.5); MEAN CORPUSCULAR VOLUME 99.6 fl (80.0-96.0); PLATELET COUNT, AUTOMATED 195 k/mm3 (150-450); WHITE BLOOD COUNT 9.7 K/mm3 (4.0-10.0)
[2016-05-24 07:30] VITALS: BP 139/74
[2016-05-24 08:20] LABS: ANISOCYTOSIS 1+; BANDS 2 % (< 11); EOSINOPHILS 2 % (0-5)
[2016-05-24] MEDS: levETIRAcetam 250MG TABLET (KEPPRA) PO SCH ×2 (08:49→20:25)
[2016-05-24] MEDS: ASPIRIN 81 MG ENTERIC TAB PO SCH (08:49)
[2016-05-24] MEDS ORDERED: DESMOPRESSIN ACETATE 4 MCG in NS 50 ML IV ONE ×2 (11:00→23:00)
[2016-05-24 12:00] VITALS: BP 140/75
[2016-05-24 14:30] LABS: CALCIUM LEVEL 9.6 MG/DL (8.8-10.2); CREATININE FOR GFR 1.79 MG/DL (0.70-1.30); GLOMERULAR FILTRATION RATE 40.6 (>49); POTASSIUM SERUM 4.4 MEQ/L (3.5-5.1)
[2016-05-24 14:44] VITALS: BP 148/72
[2016-05-24 15:56] VITALS: BP 129/75
--- NOTE | 2016-05-24 17:15 | IPN ---
DATE: 05/24/2016 Time: 9:30 a.m. The patient has been seen and examined at bedside. No acute events overnight. The patient is feeling better today. Admits to less tremor in his hands and the patient appears to be feeling less confused and in addition, he also feels he has more energy. Otherwise he denies any fever or chills, any chest pain, trouble breathing, abdominal pain, nausea, vomiting, diarrhea or constipation, any problem with urination. Denies any new weakness on any side of his body, any change of sensation. Denies any other current new complaints. PHYSICAL EXAMINATION: VITAL SIGNS: Temperature 98, pulse 65, respirations 22, blood pressure 139/74. Saturating 98% on room air. GENERAL: The patient is a pleasant elderly male who looks younger than his age. Does not appear to be in distress. Sitting up comfortably in his recliner with head elevated at 60 degrees. The patient, however, does have a flat affect. HEENT: Normocephalic, atraumatic. Extraocular motor intact. Mucosa moist. Peripheral vision were reduced bilaterally and patient's finger to nose examination has improved this morning compared to day prior. NECK: Supple. No neck lymphadenopathy. CARDIOVASCULAR: Regular rate and rhythm, S1, S2. 2/6 systolic heart murmur. LUNGS: Clear to auscultation bilaterally. No wheezes, rales or rhonchi. ABDOMEN: Positive bowel sounds, soft, nontender, nondistended. No peritoneal signs. No ecchymosis. However, it appears to be obese. EXTREMITIES: No edema, clubbing or cyanosis. The patient is hyperreflexia at bilateral deep tendon reflex. SKIN: Warm and dry. NEUROLOGICAL: Cranial nerves II through XII grossly intact, however, the patient does have reduced peripheral vision bilaterally and smell was symmetrical, tongue protruding midline. Finger to nose coordination has improved compared to day prior. LABS: WBC 9.7, hemoglobin 13.6, hematocrit 43.2 with platelet count of 195 and MCV 99.6. Sodium 147, potassium 4.4, chloride 113, bicarbonate 26, BUN 21, creatinine 1.79 , improved compared to day prior 1.85. GFR 40.6, fasting glucose 133. Osmolality 307, calcium 9.7. The patient ADH level is currently pending. [place] level today is 0.79, back to within normal range. Yesterday it was 1.31. Urinalysis from day prior shows 1+ bacteria. Urine osmolality was 118. Urine random sodium was 24. No new cultures. No new imaging. ASSESSMENT AND PLAN: 65-year-old male with past medical history of bipolar, hyperlipidemia, benign prostatic hypertrophy (BPH), right lazy eye, chronic kidney disease, stage III presented with: 1. Neurological changes with confusion, slurred speech, tremor likely secondary to lithium toxicity. Dr. Merino from neurology was consulted and believes that patient's symptoms were secondary to lithium toxicity as well and recommended the patient to have a discussion with his psychiatrist regarding reducing lithium dose due to patient's worsening renal function and also recommended alternate medication for bipolar disorder such as Depakote, Trileptal, Lamictal or Tegretol should be considered and he should followup with his psychiatrist, Dr. Conner Sanchez in [place], [place], and should followup with Chloé Francis in a couple of weeks after hospital discharge. In addition, the patient had an EEG done and it shows stage 1 and 2 sleep is abnormal due to presence of generalized slowing and disorganization of background consistent with nonspecific diffuse cerebral dysfunction such as encephalopathy due to multiple potential causes including toxicity and metabolic medication related infection, auto-immune or multifocal structural abnormalities. In addition, the right central and parietal voltage attenuation and epileptiform discharges were seen consistent with focal cortical structural or functional abnormality with epileptic potential. Will need to check with Dr. Merino regarding possibility of discontinuing Keppra. Also once the patient's kidney function improves, will consider checking CT angio. It was recommended by Dr. Cabrera from neurosurgery who were also initially consulted. Otherwise, continue neuro checks every 4 hours and continue the patient on seizure precaution. 3. Metabolic encephalopathy due to [place] toxicity. Resolved. 4. Acute on chronic kidney disease, stage III. Likely secondary to lithium toxicity due to nephrogenic diabetic insipidus. The patient's creatinine has improved today. Dr. Hodgson has been consulted. Will continue to follow his recommendations. Currently, the patient had K10 with D5W at 100 mL per hour. The patient was discontinued. The patient also received one dose of desmopressin 4 mcg per nephrology. In addition, the patient's ADH were also measured due to possible concurrent central diabetic insipidus. Otherwise, the patient does have a serial osmolality of 307, which is elevated and urine osmolality of 118, which was reduced and a random urine sodium of 24, which represented a picture of diabetic insipidus. Will continue to follow nephrology recommendation regarding further workup. 4. A subtle compression of the brain due to a large cyst noticed on CT. 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 However, will rule out central diabetic insipidus with ADH level and continue to monitor. Continue patient on seizure precaution for now. 5. Chronic lithium toxicity and bipolar disorder. Dr. Merino from neurology has recommended dose reduction with psychiatrist outpatient. The patient's right upper quadrant ultrasound did not show any acute findings. 6. Hyperlipidemia. Continue home statin. 7. BPH. Continue Proscar. 8. Deep venous thrombosis (DVT) prophylaxis. Sequential compression only for now. DISPOSITION: Will rule out etiology of patient's hypernatremia, likely secondary to lithium toxicity, however, central diabetic insipidus could not be ruled out. Nephrology has been consulted. We appreciate their recommendation. In addition, will continue to follow neurology and neurosurgery recommendations. The patient is currently FULL CODE. The patient has been discussed with attending doctor, Dr. García. My preceptor for this patient encounter was Dr. García. The preceptor was physically present in the building during the encounter and was fully available. As needed, all aspects of the patient interview, examination, medical decision making process, and medical care plan development were reviewed and approved by the preceptor. The preceptor is aware and concurs with the plan as stated in the body of this note and will attest to such by his/her cosignature. Attending note: patient seen and examined independently. All aspects of medical treatment discussed with resident and agree with above course of action MTDD
--- NOTE | 2016-05-24 17:22 | IPN ---
DATE: 05/24/2016 Neurosurgery Patient is seen at the bedside today. He is accompanied by a sitter. Patient is sitting comfortably in his bed. He is alert. He denies any symptoms at this time. He states that he did get dizzy when standing up to use the restroom and that he will become dizzy on occasion when he is ambulating, although this has been improving. He denies any pain anywhere, any headache, any nausea. He states he feels his speech has been improving. His sitter states that it seems he has difficulty with word finding, worse in the mornings, and it will gradually improve as the day goes on. He states he has been eating and drinking well. He is oriented times three, but it does seem he is somewhat slow to answer, as if he is somewhat confused, although he does answer the questions correctly. Other than mild dysnomia, no other speech deficits are noted at this time. No other new focal deficits as from previously noted are found today. Regarding his lab work, it appears his lithium level is 0.79 today, which is much improved than it was on May 22 and May 21. His sodium is still elevated, but this is also trending down. No new recommendations at this time.
[2016-05-24 20:00] VITALS: BP 141/78
[2016-05-24] MEDS: ATORVASTATIN 10 MG TAB PO SCH (20:25)
[2016-05-24] MEDS: FINASTERIDE 5 MG TAB PO SCH (20:25)
[2016-05-24] MEDS: MULTIVITAMINS/MINERALS THERAP 1 TAB PO SCH (20:25)
[2016-05-24 20:41] LABS: CALCIUM LEVEL 9.4 MG/DL (8.8-10.2); CREATININE FOR GFR 1.88 MG/DL (0.70-1.30); GLOMERULAR FILTRATION RATE 38.4 (>49); POTASSIUM SERUM 3.8 MEQ/L (3.5-5.1)
[2016-05-25] VITALS: BP 150/71
[2016-05-25 04:00] VITALS: BP 154/78
[2016-05-25 06:05] LABS: MEAN CORPUSCULAR HEMOGLOBIN 31.4 pg (27.0-33.0); MEAN CORPUSCULAR VOLUME 98.1 fl (80.0-96.0); PLATELET COUNT, AUTOMATED 191 k/mm3 (150-450); RED CELL DISTRIBUTION WIDTH 13.2 % (11.5-14.5); WHITE BLOOD COUNT 9.9 K/mm3 (4.0-10.0)
[2016-05-25 06:10] LABS: CALCIUM LEVEL 9.6 MG/DL (8.8-10.2); CREATININE FOR GFR 1.86 MG/DL (0.70-1.30); GLOMERULAR FILTRATION RATE 38.9 (>49); MAGNESIUM LEVEL 2.6 MG/DL (1.8-2.4); POTASSIUM SERUM 3.8 MEQ/L (3.5-5.1)
[2016-05-25 06:42] LABS: BANDS 1 % (< 11); EOSINOPHILS 4 % (0-5)
--- NOTE | 2016-05-25 06:59 | IPN ---
DATE: 05/24/2016 SUBJECTIVE: This is a 65-year-old male seen and examined in the progressive care unit (PCU). Overnight, no reported acute events. This morning, feels well and has been ambulating in the shearer without any issues. Continues to be thirsty and urinates throughout the day. REVIEW OF SYSTEMS: No chest pain, shortness of breath, abdominal pain, fevers, chills, nausea, vomiting, diarrhea, constipation. OBJECTIVE: VITAL SIGNS: Blood pressure 139/74. Heart rate 65. Respiration rate 22. Temperature 98. Pulse oximetry 98% on room air. Intake and output in the last 24 hours 4840 and 4250 for net positive of 590. Since admission, he is net positive of 55 mL. GENERAL: Walking in the hallway comfortable in no acute distress. He is alert, awake and oriented times three. Pleasant, cooperative. 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 Moist oral mucosa. Neck supple. No jugular vein (JVD). Trachea midline. HEART: Regular rate and rhythm. S1, S2 present and normal. LUNGS: Clear to auscultation without wheezing, rales or rhonchi. ABDOMEN: Protuberant, but nontender, nondistended. Bowel sounds present. No guarding. No rebound. EXTREMITIES: No pedal edema. No clubbing or cyanosis. Pedal pulses present bilaterally. SKIN: No obvious lesions. NEUROLOGIC: He is alert, awake, oriented times three. PSYCHIATRIC: Flat affect, but cooperative and pleasant. LABORATORY DATA: WBC 9.7, hemoglobin 13.6, hematocrit 43.2 and platelets 195. Sodium 149, potassium 3.9, chloride 113, carbon dioxide 28, BUN 19, creatinine 1.85, glucose 97, calcium 9.4, magnesium 2.7. [place] level 0.79. Urinalysis (UA) showed pH of 1.002. Random osmolality 118. Random sodium 124. Serum osmolality yesterday was 315. IMPRESSION AND PLAN: Mr. 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 He has been evaluated by neurosurgery and neurology and at this time recommended outpatient workup. He was also found to have hypernatremia. 1. Hypernatremia. Could be due to lithium toxicity. In evaluating his labs, it appears that he has findings consistent with diabetes insipidus with his specific gravity of 1.002, urine osmolality 118, and concentrated serum osmolality. His calculated osmolality is 313, suggestive that he does not have an osmolar gap. 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 His finding on MRI showed a very prominent cyst measuring 11 cm which could have effect on his pituitary. He also presented rather acutely with his confusion which might also support a neurologic cause of diabetes insipidus. His ADH level is currently pending. We have ordered desmopressin to further differentiate. If this does bag turner to be nephrogenic diabetes insipidus, then he will benefit from hydrochlorothiazide. However, at this time, further work up is pending for central diabetes insipidus. Because of testing, we have discontinued his current IV fluid. He may continue with generous oral fluid hydration. 2. [place] toxicity, resolved. The patient reportedly has been diagnosed with bipolar disorder for at least 12 years and has been on lithium treatment. [place] has since been discontinued. 3. Chronic kidney disease. At his baseline, he is Stage III. Renal function showed slight improvement today compared to yesterday. My preceptor for this patient encounter was Dr. Jameson Hodgson. The preceptor was physically present in the building during the encounter and was fully available. As needed, all aspects of the patient interview, examination, medical decision making process, and medical care plan development were reviewed and approved by the preceptor. The preceptor is aware and concurs with the plan as stated in the body of this note and will attest to such by his/her cosignature. CASSIDY
[2016-05-25 08:49] VITALS: BP 117/65
[2016-05-25] MEDS ORDERED: hydroCHLOROthiazide 25 MG TAB PO ONE (09:45)
[2016-05-25] MEDS: ASPIRIN 81 MG ENTERIC TAB PO SCH (10:22)
[2016-05-25] MEDS: levETIRAcetam 250MG TABLET (KEPPRA) PO SCH ×2 (10:23→21:55)
[2016-05-25] MEDS ORDERED: KCL 20MEQ IN D5W 1000ML 1,000 ML IV SCH (11:00)
[2016-05-25 12:00] VITALS: BP 127/61
[2016-05-25] MEDS: HEPARIN SOD (PORCINE) 5000 UNITS/ML VIAL SQ SCH ×2 (14:21→21:54)
--- NOTE | 2016-05-25 15:05 | IPN ---
DATE: 05/25/2016 Time patient was seen was this morning at 9:00 a.m. The patient has been seen and examined at bedside. No acute events overnight. The patient continues to feel better. Denies any tremor of the hands. Denies any weakness on any side of his body. Denies any change of sensations. The patient stated that the numbness and tingling on his fingers has resolved. Denies any trouble swallowing. Denies any blurred vision. Denies any chest pain, trouble breathing, abdominal pains, nausea, vomiting, diarrhea, or constipation. Denies any other current new complaints. PHYSICAL EXAMINATION: VITAL SIGNS: Temperature 97.7, pulse 68, respirations 16, blood pressure 117/65, oxygen saturation 96% on room air. GENERAL: The patient is a pleasant, elderly male who looks younger than his age. However, he does have a flat affect. Laying comfortably in bed with head elevated at 45 degree angle. HEENT: Normocephalic, atraumatic. Extraocular motor intact. Mucosa moist. The patient does have a right-sided lazy eye and still has reduced peripheral vision. However, the patient's sxgjlh-ex-gbof examination has much improved compared to two days ago. NECK: Supple. No neck lymphadenopathy. CARDIOVASCULAR: Regular rate and rhythm, S1, S2. No murmurs, rubs, or gallops. LUNGS: Clear to auscultation bilaterally. No wheezes, rales, or rhonchi. ABDOMEN: Positive bowel sounds, soft, nontender, nondistended. No peritoneal signs. No ecchymosis. EXTREMITIES: No edema, clubbing, or cyanosis. SKIN: Warm and dry. NEUROLOGICAL: Cranial nerves II-XII intact, except for stated in the HEENT. LABORATORY DATA: WBC 9.9, hemoglobin 14.1, hematocrit 44.1 with platelet count of 191 and MCV 98.1. Sodium 149, potassium 3.8, chloride 115, bicarbonate 27, BUN 22, creatinine 1.86 , GFR 38.9, glucose 102. Osmolality was 115, calcium 9.6, magnesium 2.6. The patient does not have any new cultures. There is no new imaging. There are no new studies. ASSESSMENT AND PLAN: A 65-year-old male with past medical history of bipolar, hyperlipidemia, benign prostatic hypertrophy (BPH), right lazy eye, chronic kidney disease, stage III who presented with: 1. Neurological changes with confusion, slurred speech and tremor, likely secondary to lithium toxicity. Neurology was consulted. Dr. Merino believed that the patient's symptoms were secondary to lithium toxicity and recommended discussion with his psychiatrist regarding reducing the dose of lithium due to patient's worsening renal function and recommended alternate medication for bipolar disorder such as Depakote, Trileptal, Lamictal or Tegretol should be considered when he follows up with his psychiatrist, Dr. Conner Sanchez, in [place], [place]. In addition, the patient should followup with Chlo[facility] Francis in a few of weeks after discharge. EEG was also done. It did show some stage 1 and 2 sleep abnormalities and also shows generalized slowing and disorganized background consistent with nonspecific diffuse cerebral dysfunction such as encephalopathy and multiple potential causes including toxicity and metabolic medication related with infection, auto-immune or multiple structural abnormality. In addition, the right central and parietal voltage attenuation and also epileptiform discharges were seen consistent with focal cortical structural or functional abnormalities with epileptic potential. The patient is being continued on Keppra which was started by neurosurgery, Dr. Cabrera. Continue neurologic checks and continue seizure precautions. 2. Acute on chronic kidney disease, stage III, which was likely secondary to lithium toxicity due to nephrogenic diabetic insipidus. Nephrology was consulted. Dr. Hodgson at this point suspects nephrogenic diabetic insipidus and less likely to be central diabetic insipidus. Nephrology has planned to start the patient on hydrochlorothiazide. 3. A subtle compression of the brain due to a large cyst noticed on CT. 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 However, we continue the patient on seizure precaution for now. 4. Chronic lithium toxicity and bipolar disorder. Dr. Merino from neurology recommended change the dose with psychiatrist. 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 5. Hyperlipidemia. Continue home statin. 6. BPH. Continue Proscar. 7. Deep venous thrombosis (DVT) prophylaxis, on sequential compression device (SCD) only for now. DISPOSITION: The patient's hypernatremia is likely secondary to lithium toxicity and nephrogenic diabetic insipidus. We appreciate Dr. Hodgson from nephrology's consultation and we will continue to follow neurology and neurosurgery recommendations as well. The patient is currently FULL CODE. The patient has been discussed with attending doctor, Dr. García. My preceptor for this patient encounter was Dr. García. The preceptor was physically present in the building during the encounter and was fully available. As needed, all aspects of the patient interview, examination, medical decision making process, and medical care plan development were reviewed and approved by the preceptor. The preceptor is aware and concurs with the plan as stated in the body of this note and will attest to such by his/her cosignature. Attending note: patient seen and examined independently. All aspects of medical treatment discussed with resident and agree with above course of action MTDD
[2016-05-25 18:44] LABS: CALCIUM LEVEL 9.4 MG/DL (8.8-10.2); CREATININE FOR GFR 1.84 MG/DL (0.70-1.30); GLOMERULAR FILTRATION RATE 39.4 (>49); POTASSIUM SERUM 4.3 MEQ/L (3.5-5.1)
--- NOTE | 2016-05-25 19:32 | IPN ---
DATE: 05/25/2016 SUBJECTIVE: This is a 65-year-old male who is seen and examined at bedside. Overnight, no reported acute events. Yesterday we gave him desmopressin twice to but no significant change to his serum osmol. REVIEW OF SYSTEMS: No chest pain, shortness of breath, nausea, vomiting, diarrhea, constipation, fevers, chills, abdominal pain. OBJECTIVE: VITAL SIGNS: Blood pressure 117/65. Heart rate 68. Temperature 97.7, Respiration rate 16. Pulse oximetry 96% on room air. INTAKE AND OUTPUT IN THE LAST 24 HOURS: 4930 and 5500. Weight is 91 kg, but yesterday was 88 kg. Net negative in the last 24 hours 570. Since midnight 1184. Since admission it is 2 liters negative. GENERAL: Patient is lying in bed, comfortable, in no acute distress. Alert, awake and oriented times three. Pleasant, cooperative. Moist oral mucosa. HEENT: Normocephalic, atraumatic, moist oral mucosa. Neck: Supple. Trachea midline. No jugular venous distention. CHEST: Symmetric chest rise. No accessory muscle use. Breath sounds clear bilaterally without rales, wheezing or rhonchi. HEART: Regular rate and rhythm. S1, S2 present and normal. ABDOMEN: Protuberant, but nontender, nondistended. Bowel sounds present. No guarding. No rebound. EXTREMITIES: No pedal edema. No clubbing or cyanosis. Pedal pulses present bilaterally. SKIN: No obvious lesions. NEUROLOGIC: He is alert, awake, oriented times three. PSYCHIATRIC: Flat affect, but otherwise cooperative and pleasant. LABORATORY DATA: WBC 9.9, hemoglobin 14.1, hematocrit 44.1, platelet 191. Sodium 149, potassium 3.8, chloride 115, carbon dioxide 27, BUN 22, creatinine 1.86, glucose 102, urine osmolality 315. IMPRESSION AND PLAN: Mr. Taylor is a 65-year-old male with history of chronic kidney disease Stage III, bipolar disorder presented with confusion, difficulty with speech. Found to have hypernatremia. 1. Hypernatremia. Yesterday we tried desmopressin twice but without much change in his serum osmolality. He is unable to concentrate urine with medication. 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 Therefore we have ordered one time dose of hydrochlorothiazide today and standing dose tomorrow 25 mg daily. Will recommend continuing hydrochlorothiazide whenever he is discharged. We have also added D5W with KCL at a rate of 200 mL per hour for a total of 1 liter only. His ADH level is pending. Recommend continue generous by mouth fluid intake. Discussed with the nursing staff that he should always have water available in his room. 2. [place] toxicity, resolved. Has been lithium for many years. Because of his high level and diabetes insipidus, advised against resuming this medication. He will likely benefit for an alternative agent for treatment of his underlying psychiatric condition. 3. Chronic kidney disease. Renal function is not significantly changed today compared to last night. We have started hydrochlorothiazide as mentioned above. My preceptor for this patient encounter was Dr. Jameson Hodgson. The preceptor was physically present in the building during the encounter and was fully available. As needed, all aspects of the patient interview, examination, medical decision making process, and medical care plan development were reviewed and approved by the preceptor. The preceptor is aware and concurs with the plan as stated in the body of this note and will attest to such by his/her cosignature. CASSIDY
[2016-05-25 20:00] VITALS: BP 144/67
[2016-05-25] MEDS: MULTIVITAMINS/MINERALS THERAP 1 TAB PO SCH (21:55)
[2016-05-25] MEDS: ATORVASTATIN 10 MG TAB PO SCH (21:55)
[2016-05-25] MEDS: FINASTERIDE 5 MG TAB PO SCH (21:55)
[2016-05-26] VITALS: BP 154/87
[2016-05-26 04:00] VITALS: BP 143/80
[2016-05-26 05:51] LABS: BASO % 0.5 % (0.0-1.0); EOS # 0.4 K/mm3 (0.0-0.50); EOS % 3.8 % (0.0-3.0); LARGE UNSTAINED CELL # 0.7 K/mm3 (0.0-0.4); LARGE UNSTAINED CELL % 7.3 % (0.0-4.0); LYMPH # 2.2 K/mm3 (1.5-4.5); LYMPH % 16.3 % (24.0-44.0); MEAN CORPUSCULAR HEMOGLOBIN 32.3 pg (27.0-33.0); MEAN CORPUSCULAR HGB CONC 32.7 g/dl (32.0-36.5); MONO # 0.6 K/mm3 (0.0-0.8); MONO % 6.5 % (0.0-5.0); NEUTROPHILS # 6.2 K/mm3 (1.8-7.7); NEUTROPHILS % 65.6 % (36.0-66.0); PLATELET COUNT, AUTOMATED 201 k/mm3 (150-450); RED CELL DISTRIBUTION WIDTH 13.4 % (11.5-14.5); WHITE BLOOD COUNT 9.5 K/mm3 (4.0-10.0)
[2016-05-26 06:01] LABS: CREATININE FOR GFR 1.87 MG/DL (0.70-1.30); GLOMERULAR FILTRATION RATE 38.6 (>49); POTASSIUM SERUM 3.5 MEQ/L (3.5-5.1)
[2016-05-26 06:02] LABS: CALCIUM LEVEL 9.5 MG/DL (8.8-10.2); MAGNESIUM LEVEL 2.7 MG/DL (1.8-2.4)
[2016-05-26 08:00] VITALS: BP 144/81
[2016-05-26] MEDS ORDERED: hydroCHLOROthiazide 25 MG TAB PO SCH (09:00)
[2016-05-26] MEDS ORDERED: DOCUSATE SODIUM 100 MG CAP PO PRN (09:00)
[2016-05-26] MEDS: ASPIRIN 81 MG ENTERIC TAB PO SCH (09:59)
[2016-05-26] MEDS: levETIRAcetam 250MG TABLET (KEPPRA) PO SCH ×2 (09:59→20:50)
[2016-05-26] MEDS: HEPARIN SOD (PORCINE) 5000 UNITS/ML VIAL SQ SCH ×2 (09:59→20:52)
[2016-05-26] MEDS: hydroCHLOROthiazide 25 MG TAB PO SCH ×2 (09:59→20:50)
[2016-05-26] MEDS: POTASSIUM CHLORIDE 10 MEQ SR TABLET PO SCH ×2 (10:06→20:50)
--- NOTE | 2016-05-26 10:26 | IPN ---
DATE: 05/26/2016 Time patient was seen was this morning at 8:45. The patient is seen and examined at the bedside. No acute events overnight. The patient is feeling better. He admits able to walk better and more energy. Denies any tremors. Denies any change of sensations or any weakness on any one side of his body. The patient still admits to some memory loss. He was unable to remember things from the distant past. However, he denies any fever or chills, any chest pain, trouble breathing, abdominal pain, nausea, vomiting, diarrhea, or constipation. He denies any other current new complaints. PHYSICAL EXAMINATION: VITAL SIGNS: Temperature 97.9, pulse 71, respirations 20, blood pressure 143/80 , with oxygen saturation 99% on room air. GENERAL: The patient is a pleasant, elderly male who looks younger than his age. He was alert and oriented times three. Laying in bed with the head elevated at 30 degrees. HEENT: Normocephalic, atraumatic. Extraocular motor intact. Mucosa moist. NECK: Supple. No neck lymphadenopathy. The patient does have a right sided lazy eye and the patient does have somewhat of a flat affect. CARDIOVASCULAR: Regular rate and rhythm, S1, S2. No murmurs, rubs, or gallops. LUNGS: Clear to auscultation bilaterally. No wheezes, rales, or rhonchi. ABDOMEN: Positive bowel sounds, soft, nontender, nondistended. No peritoneal signs. No ecchymosis. Obese. EXTREMITIES: No edema, clubbing, or cyanosis. SKIN: Warm and dry. NEUROLOGIC: Cranial nerves II-XII intact. No focal neurological deficit. Codxmg-gt-dlzc test has significantly improved compared to the day prior. LABORATORIES: WBC 9.5, hemoglobin 13.9, with hematocrit of 42.5, MCV 99, and platelet count was 201. Sodium 149, potassium 3.5, chloride 113, bicarbonate 25, BUN 26, creatinine 1.87 , GFR 38.6, glucose 118. Osmolality was 314. Calcium 9.5. Magnesium 2.7. The patient has a repeat urine random osmolality that shows 157, increased compared to two days, which was 118. ASSESSMENT AND PLAN: 65-year-old male with past medical history of bipolar, hyperlipidemia, benign prostatic hypertrophy (BPH), right lazy eye, chronic kidney disease stage III who presented with: 1. Neurological changes with confusion, slurred speech and tremor, likely secondary to lithium toxicity. Neurology, Dr. Merino, was consulted, and believed that the patient's symptoms were secondary to lithium toxicity and less likely to be patient's subarachnoid cyst. He recommended to reduce the patient's lithium dosing. In addition, the patient has nephrogenic diabetes insipidus. Dr. Hodgson from nephrology recommended patient to be off lithium and switched to other medications. In addition, EEG was done due to some abnormalities and therefore the patient was kept on Keppra. Dr. Cabrera was also initially consulted and will follow his recommendations as well. Continue seizure precaution. 2. Acute on chronic kidney disease stage III, likely secondary to lithium toxicity due to nephrogenic diabetic insipidus. Nephrology was consulted and will follow his recommendation. The patient's urine osmolality has improved with hydrochlorothiazide. Nephrology recommended to continue patient on hydrochlorothiazide outpatient and the patient should drink a plenty amount of water and should always have water at his side. 3. Subtle compression of the brain due to a large cyst noticed on CT. 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 The patient however is continued on seizure precaution for now. 4. Metabolic encephalopathy secondary to lithium toxicity, resolved. Continue to monitor. 5. Chronic lithium toxicity and bipolar disorder. [place] level was back to normal. Continue to monitor. 6. Hyperlipidemia. Continue home statin. 7. Benign prostatic hypertrophy (BPH). Continue Proscar. 8. Deep venous thrombosis (DVT) prophylaxis, on sequential compression device (SCD) and subcutaneous heparin. DISPOSITION: The patient's hypernatremia remained about the same; however, patient's urine osmolality has improved. Will continue to follow nephrology recommendation. The patient is currently FULL CODE. The patient has been discussed with attending doctor, Dr. García. My preceptor for this patient encounter was Dr. García. The preceptor was physically present in the building during the encounter and was fully available. As needed, all aspects of the patient interview, examination, medical decision making process, and medical care plan development were reviewed and approved by the preceptor. The preceptor is aware and concurs with the plan as stated in the body of this note and will attest to such by his/her cosignature. Attending note: patient seen and examined independently. All aspects of medical treatment discussed with resident and agree with above course of action MYNORD
[2016-05-26 11:37] LABS: OSMOLALITY URINE 133 MOSM/KG (500-800)
[2016-05-26 19:00] VITALS: BP 142/76
[2016-05-26 20:25] VITALS: BP 151/79
[2016-05-26] MEDS: ATORVASTATIN 10 MG TAB PO SCH (20:50)
[2016-05-26] MEDS: MULTIVITAMINS/MINERALS THERAP 1 TAB PO SCH (20:50)
[2016-05-26] MEDS: FINASTERIDE 5 MG TAB PO SCH (20:50)
[2016-05-27 05:10] VITALS: BP 123/67
--- NOTE | 2016-05-27 05:24 | IPN ---
DATE: 05/26/2016 SUBJECTIVE: This is a 65-year-old male who is seen and examined at bedside. Overnight, no reported acute events. Yesterday, we started him on hydrochlorothiazide and also gave him one liter of IV fluid running at 200 mL/hr total. This morning, he continues to feel well, has been drinking water. REVIEW OF SYSTEMS: Denies any chest pain, shortness of breath, nausea, vomiting, diarrhea, constipation, fevers, chills, abdominal pain, headache, lightheadedness, dizziness. OBJECTIVE: VITAL SIGNS: Blood pressure 144/81, heart rate 66, temperature 97.4, respiration rate 19, pulse oximetry 97% on room air. INTAKE AND OUTPUT IN THE LAST 24 HOURS: 5381 and output 7 liters, net negative of 1.5 liters. Since midnight he is net negative of close to one liter. Weight is 87.7 kg, yesterday was 91 kg. PHYSICAL EXAM: GENERAL: Patient is lying in bed, comfortable, in no acute distress. He is alert, awake and oriented times three, pleasant, cooperative. HEENT: Normocephalic, atraumatic, moist oral mucosa. NECK: Supple. Trachea midline. No jugular venous distention (JVD). CHEST: Symmetric chest rise. No accessory muscle use. Breath sounds clear to auscultation bilaterally. No audible rales or rhonchi. HEART: Regular rate and rhythm, normal S1, S2. Did not appreciate murmurs, rubs , or gallops. ABDOMEN: Soft, protuberant, but nontender, nondistended. Bowel sounds present. No guarding. No rebound. Patient reports that his abdomen has always been protuberant for years. EXTREMITIES: No pedal edema. Pedal pulses present bilaterally. SKIN: No obvious lesions. NEUROLOGIC: Alert, awake, oriented times three. PSYCHIATRIC: Flat affect, but cooperative and pleasant. LABORATORY DATA: WBC 9.5, hemoglobin 14.9, hematocrit 42.5, platelets 201. Sodium 149, increased from yesterday 146, potassium 3.5, chloride 113, carbon dioxide 23, BUN 26, creatinine 1.87, fasting glucose 118. Urine osmolality 114. Magnesium 2.7. MEDICATIONS: There have been no further adjustments in his medications besides Colace added. IMPRESSION: Mr. Taylor is a 65-year-old male with history of chronic kidney disease (CKD) stage 3, bipolar previously on lithium, presented with confusion, difficulty with speech, found to have hypernatremia, further workup consistent with nephrogenic diabetes insipidus. PLAN: 1. Nephrogenic diabetes insipidus. This is likely secondary to lithium use. Yesterday, we started him on hydrochlorothiazide; however, his serum osmolality did not improve. Therefore, we have increased hydrochlorothiazide dose from 25 daily to 25 mg twice a day. His ADH level is still pending at this time. Continue to recommend generous fluid intake. We have asked staff to send urinalysis and urine osmolality to re-evaluate his renal function. Because he is on hydrochlorothiazide, we have also added potassium supplementation 40 mEq twice a day. The patient will need followup with Dr. Hodgson as outpatient. 2. [place] toxicity, resolved. Will recommend against starting this medication in the future to treat his underlying psychiatric disease. 3. Chronic kidney disease. Renal function is not significantly changed compared to yesterday. We have also increased the frequency of hydrochlorothiazide. From a renal standpoint, the patient can be moved out of the progressive care unit (PCU). My preceptor for this patient encounter was Dr. Jameson Hodgson. The preceptor was physically present in the building during the encounter and was fully available as needed. All aspects of the patient interview, examination, medical decision making process, and medical care plan development were reviewed and approved by the preceptor. The preceptor is aware and concurs with the plan as stated in the body of this note and will attest to such by his co-signature. CASSIDY
[2016-05-27 06:48] LABS: CALCIUM LEVEL 9.7 MG/DL (8.8-10.2); CREATININE FOR GFR 1.78 MG/DL (0.70-1.30); GLOMERULAR FILTRATION RATE 40.9 (>49); MAGNESIUM LEVEL 2.6 MG/DL (1.8-2.4); POTASSIUM SERUM 3.8 MEQ/L (3.5-5.1)
[2016-05-27 07:02] LABS: MEAN CORPUSCULAR HEMOGLOBIN 32.1 pg (27.0-33.0); MEAN CORPUSCULAR VOLUME 97.2 fl (80.0-96.0); PLATELET COUNT, AUTOMATED 212 k/mm3 (150-450); RED CELL DISTRIBUTION WIDTH 13.3 % (11.5-14.5); WHITE BLOOD COUNT 8.7 K/mm3 (4.0-10.0)
[2016-05-27 07:51] LABS: EOSINOPHILS 2 % (0-5)
[2016-05-27] MEDS: POTASSIUM CHLORIDE 10 MEQ SR TABLET PO SCH ×2 (09:55→20:27)
[2016-05-27] MEDS: ASPIRIN 81 MG ENTERIC TAB PO SCH (09:56)
[2016-05-27] MEDS: levETIRAcetam 250MG TABLET (KEPPRA) PO SCH (09:56)
[2016-05-27] MEDS: hydroCHLOROthiazide 25 MG TAB PO SCH ×2 (09:56→20:27)
[2016-05-27] MEDS: HEPARIN SOD (PORCINE) 5000 UNITS/ML VIAL SQ SCH ×2 (09:56→20:28)
[2016-05-27] MEDS: DESMOPRESSIN ACETATE 0.1 MG TAB PO SCH ×2 (11:03→20:28)
--- NOTE | 2016-05-27 13:21 | IPN ---
DATE: 05/27/2016 Time patient was seen was this morning at 11:30. The patient has been seen and examined at bedside. No acute events overnight. The patient is feeling better. He denies any additional tremor, any additional neurological changes, any weakness or any change of sensations. Denies any fever or chills or any chest pain or trouble breathing, abdominal pain, nausea, vomiting, diarrhea or constipation. The patient has been ambulating well with physical therapy yesterday. PHYSICAL EXAMINATION: VITAL SIGNS: Temperature 98.7, pulse 58, respirations 16, blood pressure 123/67 , oxygen satting at 93% on room air. GENERAL: The patient is a pleasant, elderly male who looks younger than his age. He was alert, awake and oriented times three. He does not appear to be in distress. Laying comfortably in bed with the head elevated at 15 degrees. HEENT: Normocephalic, atraumatic. Extraocular motor intact. Mucosa moist. NECK: Supple. No neck lymphadenopathy. The patient does have a right sided lazy eye. CARDIOVASCULAR: Regular rate and rhythm, S1, S2. No murmurs, rubs, or gallops. LUNGS: Slight wheezing bilaterally. ABDOMEN: Positive bowel sounds, soft, nontender, nondistended. No peritoneal signs. No ecchymosis. EXTREMITIES: No edema, clubbing, or cyanosis. SKIN: Warm and dry. NEUROLOGIC: Cranial nerves II-XII intact. No focal neurological deficit. LABORATORIES: WBC 8.7, hemoglobin 14.7, hematocrit of 44.4, with platelet count of 212. MCV was 97.2. Sodium 148, potassium 3.8, chloride 113, bicarbonate 25, BUN 26, creatinine 1.78 improving compared to day before at 1.87, GFR 40.9, fasting glucose 98. Osmolality yesterday was 314. Calcium 9.7. Magnesium 2.6. Urine osmolality yesterday was 133. ASSESSMENT AND PLAN: 65-year-old male with past medical history of bipolar, hyperlipidemia, benign prostatic hypertrophy (BPH), right lazy eye, chronic kidney disease stage III who presented with: 1. Neurological changes with confusion, slurred speech and tremor, likely secondary to lithium toxicity. Neurology, Dr. Merino, was consulted. He believed patient's symptoms were secondary to lithium toxicity and less likely patient's large subarachnoid cyst. He also recommended to reduce the patient's lithium dosing. In addition, the patient has nephrogenic diabetes insipidus. Dr. Hodgson and Dr. Smallwood from nephrology were consulted and they believe the patient should be off lithium. The patient's EEG however does show some abnormalities. Therefore, the patient has been kept on Keppra. Dr. Cabrera also initially was consulted and recommended CT angio of the chest once patient's kidney improves. Continue patient on seizure precautions. 2. Acute on chronic kidney disease stage III, likely secondary to lithium toxicity due to nephrogenic diabetic insipidus. Nephrology has been consulted. Dr. Smallwood started the patient on by mouth desmopressin today. The patient is also on hydrochlorothiazide 25 mg by mouth twice a day. Will continue to monitor. Continue to followup with serum and urine osmolality. 3. Subtle compression of the brain due to a large subarachnoid cyst on CT. 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 Merino, this is likely congenital. However, will continue patient on seizure precaution for now. 4. Metabolic encephalopathy secondary to lithium toxicity, resolved. Continue to monitor. 5. Chronic lithium toxicity and bipolar disorder. [place] level is back to normal. Continue to monitor. 6. Hyperlipidemia. Continue home statin. 7. Benign prostatic hypertrophy (BPH). Continue Proscar. 8. Deep venous thrombosis (DVT) prophylaxis, on subcutaneous heparin. DISPOSITION: The patient's hypernatremia has improved. The patient has been started on desmopressin today. Will continue with nephrology recommendation. Possible discharge tomorrow. Physical therapy (PT) has cleared the patient to go home. The patient is currently FULL CODE. The patient has been discussed with attending doctor, Dr. García. My preceptor for this patient encounter was Dr. García. The preceptor was physically present in the building during the encounter and was fully available. As needed, all aspects of the patient interview, examination, medical decision making process, and medical care plan development were reviewed and approved by the preceptor. The preceptor is aware and concurs with the plan as stated in the body of this note and will attest to such by his/her cosignature. Attending Note: I have independently examined this patient and all aspects of the exam and treatment decisions have been discussed with the resident. A member of the hospitalist staff will continue to follow this patient through discharge. Additionally: the patient's EEG is negative for any suggestion of epileptiform findings. Will discontinue Keppra. MTDD
[2016-05-27 14:00] VITALS: BP 121/64
[2016-05-27] MEDS ORDERED: ASPI81TAEC PO (15:52)
[2016-05-27] MEDS ORDERED: HYDR25TAB PO (15:52)
[2016-05-27 20:00] VITALS: BP 120/68
[2016-05-27] MEDS: FINASTERIDE 5 MG TAB PO SCH (20:27)
[2016-05-27] MEDS: ATORVASTATIN 10 MG TAB PO SCH (20:27)
[2016-05-27] MEDS: MULTIVITAMINS/MINERALS THERAP 1 TAB PO SCH (20:27)
[2016-05-28 05:55] VITALS: BP 121/76
[2016-05-28 06:32] LABS: CALCIUM LEVEL 9.6 MG/DL (8.8-10.2); CREATININE FOR GFR 1.88 MG/DL (0.70-1.30); GLOMERULAR FILTRATION RATE 38.4 (>49); MAGNESIUM LEVEL 2.7 MG/DL (1.8-2.4); POTASSIUM SERUM 3.6 MEQ/L (3.5-5.1)
[2016-05-28 07:09] LABS: MEAN CORPUSCULAR HEMOGLOBIN 31.3 pg (27.0-33.0); MEAN CORPUSCULAR VOLUME 97.9 fl (80.0-96.0); PLATELET COUNT, AUTOMATED 232 k/mm3 (150-450); RED CELL DISTRIBUTION WIDTH 13.4 % (11.5-14.5); WHITE BLOOD COUNT 9.8 K/mm3 (4.0-10.0)
[2016-05-28 07:12] LABS: BASOPHILS 1 % (0-4); EOSINOPHILS 7 % (0-5)
[2016-05-28] MEDS: DESMOPRESSIN ACETATE 0.1 MG TAB PO SCH (09:06)
[2016-05-28] MEDS: ASPIRIN 81 MG ENTERIC TAB PO SCH (09:06)
[2016-05-28] MEDS: HEPARIN SOD (PORCINE) 5000 UNITS/ML VIAL SQ SCH (09:06)
[2016-05-28] MEDS: POTASSIUM CHLORIDE 10 MEQ SR TABLET PO SCH (09:06)
[2016-05-28] MEDS: hydroCHLOROthiazide 25 MG TAB PO SCH (09:06)
[2016-05-28] MEDS ORDERED: POTA10CA PO (10:21)
[2016-05-28] MEDS ORDERED: DESM1TAB4 PO (10:21)
[2016-05-28] MEDS ORDERED: ATOR1TAB19 PO (10:23)
[2016-05-28] MEDS ORDERED: ASPI81TAEC PO (10:23)
--- NOTE | 2016-05-28 11:07 | DSES ---
DATE OF ADMISSION: 05/21/2016 DATE OF DISCHARGE: 05/28/2016 PRIMARY CARE PROVIDER: Bird Powell MD CONSULTANTS: Dr. Misty Cabrera. Dr. Humberto Merino. PROCEDURES: None. COMPLICATIONS: None. ADMISSION/DISCHARGE DIAGNOSES: 1. [place] toxicity, now resolved. 2. Acute on chronic kidney disease with chronic kidney disease stage III. 3. Diabetes insipidus with some debate whether it is central versus nephrogenic and continues to produce a large amount of urine. 4. Longstanding large subarachnoid cyst on CT scan which is unchanged, likely congenital, and appreciate Dr. Merino and Dr. Cabrera's input. 5. Metabolic encephalopathy secondary to lithium toxicity now resolved and at baseline. 6. Hyperlipidemia. 7. Benign prostatic hypertrophy (BPH). BRIEF HOSPITAL COURSE: Mr. Taylor is a pleasant 65-year-old who presented to the emergency department on 05/21/2016 with episodes of confusion, difficulty with speech and polyuria, polydipsia, difficult to gain a meaningful history in the emergency department due to confusion. 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 However, on admission the CT scan of the head did show a large right subarachnoid cyst, which is unchanged from previous examination. His creatinine was 2.04 and lithium level was greater than 2. Dr. Cabrera was consulted. MRI, MRA of the head and neck did not demonstrate any new or acute findings. EEG was performed which ruled out any epileptiform processes. He was initially started on Keppra which has since been discontinued. His lithium has been discontinued as well. His kidney function has improved back towards baseline, but he continues to have 2-4 liters of urine daily. Osmolalities were checked and he is being treated with desmopressin currently, as well as hydrochlorothiazide. On the day of discharge he was felt to be back to his baseline and appropriate for discharge and can followup within the next few days at the nephrology office. PHYSICAL EXAMINATION: Today, temperature is 97.9, pulse 61, respiratory rate 18, blood pressure 121/76, SpO2 is 96% on room air. GENERAL: The patient appears to be in no acute distress. He is alert, pleasant. HEENT: Unremarkable. LUNGS: Clear. HEART: Regular rhythm. ABDOMEN: Soft. EXTREMITIES: No edema. No calf tenderness. LABORATORIES: White count is 9.8, hemoglobin 14.9, platelets 232. Sodium is 147, potassium 3.6, chloride 113, bicarb 24, anion gap 10, BUN 30, creatinine 1.88, glucose 99, magnesium 2.7. He additionally had a right upper quadrant ultrasound which was negative during his hospital stay. DISCHARGE CONDITION: Good. DISPOSITION: Discharged home with services. DISCHARGE MEDICATIONS: - aspirin 81 mg daily - desmopressin 0.1 mg twice a day - hydrochlorothiazide 25 mg twice a day - potassium chloride 40 mEq twice a day - Tylenol 650 mg every 4 hours as needed - Lipitor 10 mg daily - finasteride 5 mg at bedtime - multivitamin one tablet at bedtime DISCHARGE INSTRUCTIONS: Discharged home. Activity as tolerated. Followup with Dr. Hodgson's office this coming week. Followup with Dr. Bird Powell in 1-2 weeks. Return to the emergency department if symptoms should worsen or progress. He voices understanding. Discharge took approximately 35 minutes.
--- NOTE | 2016-05-28 16:38 | IPN ---
DATE: 05/27/2016 SUBJECTIVE: This is a 65-year-old male who was seen and examined at bedside. Overnight, no acute events reported. He was transferred out of progressive care unit (PCU) to medical/surgical. Yesterday, we increased his hydrochlorothiazide from daily to twice a day. REVIEW OF SYSTEMS: Denies any chest pain, shortness of breath, nausea, vomiting , fevers, chills, headaches, dizziness, lightheadedness. Continues to have good by mouth and intravenous (IV) fluid intake and urine output. OBJECTIVE: VITAL SIGNS: Blood pressure 123/67, heart rate 58, temperature 98.7, respiration rate 16, pulse oximetry 93% on room air. INTAKE AND OUTPUT: The last 24 hours: 4800 and 5875, net negative of 1 liter. Weight is 87.7 kg. Since admission, he is total intake of 23.5 liters and output 27.7 liters, with net negative of 4.2 liters. PHYSICAL EXAM: GENERAL: Patient is lying in bed, flat angle, comfortable. No acute distress. He is alert, awake, oriented times three. Pleasant, cooperative. EYES: Extraocular movements intact. HEENT: Moist oral mucosa. Nasal septum midline. NECK: Supple. Trachea midline. CHEST: Symmetric chest rise. No accessory muscle use. Breath sounds were clear to auscultation bilaterally. HEART: Regular rate and rhythm. S1, S2 present. ABDOMEN: Protuberant, but nontender, nondistended. Bowel sounds present. No guarding. No rebound. EXTREMITIES: No pedal edema. Pedal pulses present bilaterally. NEUROLOGIC: Strength 5/5 bilateral extremities. Cranial nerves II-XII grossly intact. PSYCHIATRIC: Flat affect, but cooperative, pleasant. MEDICATION CHANGES: Include: - hydrochlorothiazide was increased yesterday from daily to twice a day - He was also started him on potassium supplementation. LABORATORY DATA: WBC 8.7, hemoglobin 14.7, hematocrit 44.4, platelets 212. Sodium 148, mildly decreased from yesterday 149, potassium 3.8, chloride 113, carbon dioxide 25, BUN 26, creatinine 1.78, improved from yesterday 1.87, calcium 9.7, magnesium 2.6. Urine osmolality yesterday 133. Urine specific gravity 1.002. IMPRESSION/PLAN: Mr. Taylor is a 65-year-old male with history of chronic kidney disease (CKD) stage III, bipolar previously on lithium, presented with confusion, difficulty with speech, found to have hyponatremia, acute kidney injury. Workup found patient to have nephrogenic diabetes insipidus. PLAN: 1. Nephrogenic diabetes insipidus. Secondary to lithium use. Yesterday, we increased his hydrochlorothiazide to twice a day; however, there has not been a significant improvement in his sodium level. Therefore, we have also added desmopressin by mouth. Hopefully this will help with his ability to concentrate his urine. Antidiuretic hormone (ADH) level is still pending at this time. We have repeated urine osmolality. Continue hydrochlorothiazide and potassium supplementation, KCl 40 mEq twice a day. He will require followup with Dr. Hodgson outpatient. 2. [place] toxicity. Level is no longer toxic. He continues to be off lithium. Recommend against restarting this medication in the future due to his nephrogenic diabetic insipidus secondary to medication. 3. Chronic kidney disease (CKD). Baseline renal function is stage III. There is improvement in his renal function today compared to yesterday. Continue with hydrochlorothiazide 25 mg twice a day. Recommend monitoring him for another day with the addition of desmopressin and follow up labs in the morning. If his labs show improvement, he might be able to go home tomorrow. Case discussed with medical i d sales, Dr. Monson. My preceptor for this patient encounter was Dr. Yesika Smallwood. The preceptor was physically present in the building during the encounter and was fully available as needed. All aspects of the patient interview, examination, medical decision-making process, and medical care plan development were reviewed and approved by the preceptor. The preceptor is aware and concurs with the plan as stated in the body of this note and will attest to such by his/her co-signature. CASSIDY
--- NOTE | 2016-05-29 04:27 | IPN ---
DATE: 05/28/2016 SUBJECTIVE: The patient was seen and examined at the bedside today in the morning. The patient does not have any active complaints. His sodium level continues to fluctuate between 147 and 148 and creatine has also plateaued. He was started on desmopressin in addition to hydrochlorothiazide yesterday. However, he continues to have high urine output. REVIEW OF SYSTEMS: The patient denies any fevers, chills, rigors, headache, nausea, vomiting, chest pain, shortness of breath, pain in abdomen, constipation, diarrhea. The rest of the review of systems is negative. OBJECTIVE: VITAL SIGNS: Temperature is 97.9 degrees Fahrenheit, blood pressure is 121/76, pulse is 61, respiratory rate of 18, saturating 96% on room air. Intake and output: Urine output recorded was 4.4 liters yesterday, 1.6 liters so far today since overnight, bed scale weight is not available. PHYSICAL EXAMINATION: GENERAL: The patient is awake, alert, and oriented times three, laying in the bed in no apparent distress. HEAD AND NECK EXAM: Extraocular muscles intact. The patient is normocephalic, atraumatic. Mucous membranes are moist. Neck is supple. Trachea is midline. There is no jugular venous distension (JVD). CARDIOVASCULAR: S1, S2, regular rate. No murmur, rub or gallop. RESPIRATORY: Chest is clear to auscultation bilaterally. Bilateral equal air entry. No rales or rhonchi. ABDOMEN: Soft. Positive bowel sounds. Nontender. No ascites. No organomegaly. EXTREMITIES: No clubbing or cyanosis. Pulses are 2+. CENTRAL NERVOUS SYSTEM: No focal neurological deficit. Power is 5/5 in all extremities. SKIN: No rashes or ulcers. PSYCHIATRIC: Flat affect. Normal mood. LABORATORY REVIEW: Complete blood count (CBC) showed a white blood count (WBC) 9.8, hemoglobin is 14.9. Basic metabolic panel (BMP) showed sodium 147, potassium 3.6, chloride 113, bicarbonate 24, BUN 30, creatine is 1.8. Magnesium 2.7. Urine osmolality is still low, but better than yesterday, it is 203 today. CURRENT MEDICATIONS: The patient's medications are all reviewed by me. There is no change in the medication today as compared with yesterday. He continues to be on hydrochlorothiazide 25 mg by mouth twice a day and desmopressin 0.1 mg by mouth twice a day. ASSESSMENT: 65-year-old male with past medical history of chronic kidney disease, stage III, bipolar disorder previously on lithium, admitted this time because of confusion, difficulty with speech, hypernatremia. Later on he was found to have nephrogenic diabetes insipidus. PLAN: 1. Nephrogenic diabetes insipidus. It is secondary to lithium toxicity. The patient has been started on hydrochlorothiazide 25 mg by mouth twice a day along with potassium. He continued to make more than 4 liters of urine. He has been started on desmopressin 0.1 mg by mouth twice a day. Continue to encourage increase oral intake. 2. [place] toxicity. [place] level is slowly improving. His tremors are improving. [place] has been stopped. The rest of the management is as per neurology. 3. Acute kidney injury superimposed on chronic kidney disease. The patient's creatine has plateaued at around 1.7 to 1.8. His glomerular filtration rate (GFR) is around 39 at this time. The patient's baseline creatine as per previous records is around 1.6. Continue to monitor for renal improvement. Part of acute kidney injury is secondary to combination of volume depletion and lithium toxicity. 4. Hypermagnesemia. The patient's magnesium is stable at around 2.6 to 2.7. It is secondary to chronic kidney disease. Continue to monitor for now. 5. Hypernatremia. Hypernatremia is secondary to nephrogenic diabetes insipidus. Management of her diabetes insipidus is as mentioned above. Continue to encourage oral water intake. 6. Discharge planning. It is okay to discharge the patient from nephrology standpoint on currently medications. However, he would need to followup with nephrology within one week after discharge from the hospital; and if needed, we shall adjust his medications as outpatient. Plan of care was discussed with the hospitalist team as well.
[2016-05-29] MEDS ORDERED: HYDR25TAB PO (11:38)
[2016-06-01 00:06] LABS: ANTI-DIURETIC HORMONE 4.2 pg/mL (0.0-4.7)
== END 2016-05-28 14:39 | disposition home health service (06) | DRG 52 ==
LOC: M ED 11:26 → M ED INP 13:05 → M PCU 21:50 → M MSPAV 05-26 18:56
PROVIDERS: ADMIT Hospitalist; ATTEND Hospitalist
DX: G93.41 Metabolic encephalopathy (principal); G93.5 Compression of brain; E87.0 Hyperosmolality and hypernatremia; N17.9 Acute kidney failure, unspecified; G45.9 Transient cerebral ischemic attack, unspecified; N25.1 Nephrogenic diabetes insipidus; E83.41 Hypermagnesemia; N18.3 Chronic kidney disease, stage 3 (moderate); F31.9 Bipolar disorder, unspecified; N40.0 Benign prostatic hyperplasia without lower urinary tract symptoms; E78.5 Hyperlipidemia, unspecified; T43.595A Adverse effect of other antipsychotics and neuroleptics, initial encounter; H50.10 Unspecified exotropia; Z79.899 Other long term (current) drug therapy; G93.0 Cerebral cysts

== ENCOUNTER → 2016-06-08 | Outpatient (CLI) | payer BC, MEDICARE ==
[~2016-06-08] MED LIST changes: +ASPI81TAEC PO; +DESM1TAB4 PO; +HYDR25TAB PO; +POTA10CA PO; +SILE3TAB3 PO; +TERB250T57 PO; +TYLE325T5 PO; +VITMTA PO
--- NOTE | 2016-06-08 13:00 | REP ---
Clinical: Radiculopathy. Technique: AP, lateral, bilateral oblique and cone down views of the lumbosacral spine. Findings: Moderate multilevel degenerative disc osteophyte complexes are appreciated. Findings include endplate sclerosis, disc space narrowing, anterior spurring. Findings are most pronounced at the L4-5 and L5-L1 levels. AP view demonstrates bridging osteophyte along the right side of the L2-3 level. No evidence for spondylolysis or spondylolisthesis. Alignment and lordosis maintained and there is no acute fracture / compression injury or subluxation. Impression: Moderate multilevel degenerative changes most pronounced at the L4-5 and L5-L1 levels. Satisfactory alignment without acute fracture / compression injury or subluxation. Signed by Saurabh Allen MD 06/08/2016 12:52 P
== END ==
LOC: M WUC 11:43
PROVIDERS: ATTEND Physician Assistant
DX: M54.17 Radiculopathy, lumbosacral region (principal); M51.36 Other intervertebral disc degeneration, lumbar region

== ENCOUNTER → 2016-10-05 | Outpatient (REF) | payer BC ==
[~2016-10-05] MED LIST changes: +ROZE8TAB16 PO; -ROZE8TAB9 PO; +TERB250T12 PO; -TERB250T57 PO
[2016-10-05 18:07] LABS: ALBUMIN/GLOBULIN RATIO 1.33 (1.00-1.93); BILIRUBIN,TOTAL 0.4 MG/DL (0.2-1.0); CREATININE FOR GFR 1.72 MG/DL (0.70-1.30); GLOMERULAR FILTRATION RATE 42.6 (>49); POTASSIUM SERUM 3.3 MEQ/L (3.5-5.1)
== END ==
LOC: M LAB REF 17:08
PROVIDERS: ATTEND Internal Medicine
DX: E23.2 Diabetes insipidus (principal); E78.5 Hyperlipidemia, unspecified

== ENCOUNTER → 2016-10-08 | Outpatient (REF) | payer BC ==
[2016-10-09 10:52] LABS: POTASSIUM URINE 34.7 MEQ/L
[2016-10-09 14:54] LABS: POTASSIUM 24 HOUR URINE 190.8 MEQ/24HR (25-125)
== END ==
LOC: M LAB REF 09:46
PROVIDERS: ATTEND Internal Medicine Nephrology
DX: E87.0 Hyperosmolality and hypernatremia (principal); E87.6 Hypokalemia

== ENCOUNTER → 2017-02-02 | Outpatient (CLI) | payer BC ==
[2017-02-02 14:35] LABS: GLOMERULAR FILTRATION RATE 35.7 (>49)
== END ==
LOC: M LAB 13:41
PROVIDERS: ATTEND Urology
DX: R97.20 Elevated prostate specific antigen [PSA] (principal); N40.0 Benign prostatic hyperplasia without lower urinary tract symptoms

== ENCOUNTER → 2017-05-15 | Outpatient (CLI) | payer BC ==
[2017-05-15 15:13] LABS: BLOOD UREA NITROGEN 32 MG/DL (7-18)
[2017-05-15 15:13] LABS: CREATININE FOR GFR 1.97 MG/DL (0.70-1.30); GLOMERULAR FILTRATION RATE 36.3 (>49); PROSTATIC SPECIFIC AG MONITOR 4.47 NG/ML (< 4.0)
== END ==
LOC: M LAB 14:04
DX: N40.1 Benign prostatic hyperplasia with lower urinary tract symptoms (principal); N32.0 Bladder-neck obstruction
CPT/HCPCS: 82565

== ENCOUNTER → 2017-10-23 | Outpatient (CLI) | payer BC ==
[2017-10-23 09:04] LABS: BASO # 0.1 10^3/uL (0.0-0.2); BASO % 0.7 % (0.0-1.0); EOS # 0.2 10^3/uL (0.0-0.50); HEMATOCRIT 47.3 % (42.0-52.0); HEMOGLOBIN 15.7 g/dl (13.5-17.5); IMMATURE GRANULOCYTE % 0.5 % (0-3.0); LYMPH # 1.4 10^3/uL (1.5-4.5); LYMPH % 16.9 % (24.0-44.0); MEAN CORPUSCULAR HGB CONC 33.2 g/dl (32.0-36.5); MEAN CORPUSCULAR VOLUME 93.3 fl (80.0-96.0); MONO # 0.6 10^3/uL (0.0-0.8); MONO % 7.5 % (0.0-5.0); NEUTROPHILS # 6.1 10^3/uL (1.8-7.7); NEUTROPHILS % 72.4 % (36.0-66.0); PLATELET COUNT, AUTOMATED 208 10^3/uL (150-450); RED BLOOD COUNT 5.07 10^6/uL (4.30-6.10); RED CELL DISTRIBUTION WIDTH 13.6 % (11.5-14.5); WHITE BLOOD COUNT 8.5 10^3/uL (4.0-10.0)
[2017-10-23 09:06] LABS: APPEARANCE, URINE CLEAR (CLEAR); BACTERIA, URINE AUTO NEGATIVE (NEGATIVE); BILIRUBIN, URINE AUTO NEGATIVE (NEGATIVE); BLOOD, URINE BLOOD 1+ (NEGATIVE); COLOR, URINE COLORLESS (YELLOW); GLUCOSE, URINE (UA) AUTO NEGATIVE (NEGATIVE); KETONE, URINE AUTO NEGATIVE (NEGATIVE); LEUKOCYTE ESTERASE, URINE AUTO NEGATIVE (NEGATIVE); NITRITE, URINE AUTO NEGATIVE (NEGATIVE); PROTEIN, URINE AUTO NEGATIVE (NEGATIVE); RBC, URINE AUTO 1 /HPF (0-3); SPECIFIC GRAVITY URINE AUTO 1.001 (1.002-1.035); SQUAMOUS EPITHELIAL CELL UR AU 0 /HPF (0-6); UROBILINOGEN, URINE AUTO 0.2 mg/dL (0.0-2.0); WBC, URINE AUTO 0 /HPF (0-3)
[2017-10-23 09:34] LABS: ESTIMATED AVERAGE GLUCOSE 123 MG/DL (60-110); HEMOGLOBIN A1c 5.9 %
[2017-10-23 09:36] LABS: TOTAL 25(OH) VITAMIN D 41.9 NG/ML (30.0-100.0)
[2017-10-23 09:40] LABS: ALBUMIN 4.2 GM/DL (3.2-5.2); ALBUMIN/GLOBULIN RATIO 1.31 (1.00-1.93); ALKALINE PHOSPHATASE 106 U/L (45-117); ALT/SGPT 40 U/L (12-78); ANION GAP 7 MEQ/L (8-16); AST/SGOT 25 U/L (7-37); BILIRUBIN,DIRECT 0.2 MG/DL (0.0-0.2); BILIRUBIN,TOTAL 0.7 MG/DL (0.2-1.0); BLOOD UREA NITROGEN 22 MG/DL (7-18); CALCIUM LEVEL 9.4 MG/DL (8.8-10.2); CARBON DIOXIDE LEVEL 30 MEQ/L (21-32); CHLORIDE LEVEL 101 MEQ/L (98-107); CHOLESTEROL LEVEL 139 MG/DL (<200); CHOLESTEROL RISK RATIO 3.475 (<5); CREATININE FOR GFR 1.66 MG/DL (0.70-1.30); GLOMERULAR FILTRATION RATE 44.2 (>49); GLUCOSE, FASTING 104 MG/DL (70-100); HDL CHOLESTEROL 40 MG/DL (>40); NON-HDL-C 99 MG/DL; POTASSIUM SERUM 3.9 MEQ/L (3.5-5.1); SODIUM LEVEL 138 MEQ/L (136-145); TOTAL PROTEIN 7.4 GM/DL (6.4-8.2); TRIGLYCERIDES LEVEL 85 MG/DL (<150)
[2017-10-26 00:06] LABS: LAMOTRIGINE (LAMICTAL) 3.4 ug/mL (2.0-20.0)
== END ==
LOC: M LAB 07:47
DX: F31.62 Bipolar disorder, current episode mixed, moderate (principal); E55.9 Vitamin D deficiency, unspecified

== ENCOUNTER → 2018-06-07 | Outpatient (CLI) | payer BC ==
[~2018-06-07] MED LIST changes: +DESM0.1T2 PO; -DESM1TAB4 PO; +KLOR10TA76 PO; -POTA10CA PO
[2018-06-07 15:01] LABS: CREATININE FOR GFR 1.93 MG/DL (0.70-1.30); PROSTATIC SPECIFIC AG MONITOR 10.8 NG/ML (< 4.00)
== END ==
LOC: M LAB 13:33
PROVIDERS: ATTEND Physician Assistant
DX: N32.0 Bladder-neck obstruction (principal); R97.20 Elevated prostate specific antigen [PSA]

== ENCOUNTER → 2018-12-20 | Outpatient (CLI) | payer BC ==
[2018-12-20 16:56] LABS: CREATININE FOR GFR 1.92 MG/DL (0.70-1.30); GLOMERULAR FILTRATION RATE 37.3 (>49); PROSTATIC SPECIFIC AG MONITOR 9.87 NG/ML (< 4.00)
== END ==
LOC: M LAB 15:41
PROVIDERS: ATTEND Physician Assistant
DX: N18.3 Chronic kidney disease, stage 3 (moderate) (principal); R97.20 Elevated prostate specific antigen [PSA]

== ENCOUNTER 2019-02-11 10:18 | Emergency (ER) | payer BC ==
[~2019-02-11] VITALS: Ht 177.8 cm; Wt 184.0 kg
[2019-02-11] MEDS ORDERED: EPLE50TA (10:26)
[2019-02-11] MEDS ORDERED: LAMO100T3 (10:26)
--- NOTE | 2019-02-11 12:16 | REP ---
Clinical: Left arm numbness. Technique: Axial noncontrast images from the skull base to the vertex. Comparison: 05/21/2016. Findings: Stable large right arachnoid cyst is identified and unchanged. The ventricles are symmetric. The basilar cisterns are normal. Angelo-white differentiation is maintained. No acute intracranial hemorrhage, edema, or evidence for infarction noted. No extra-axial hemorrhage. Calvarium is intact/stable with thinning over the right hemisphere related to the arachnoid cyst. Sinuses and mastoid air cells are clear. Impression: Stable noncontrast head CT including stable large right arachnoid cyst. No obvious acute intracranial process appreciated. Electronically Signed by Saurabh Allen MD 02/11/2019 12:07 P
--- NOTE | 2019-02-11 12:17 | REP ---
Clinical: Chest pain . Comparison: 05/21/2016 . Technique: PA and lateral. Findings: The mediastinum and cardiac silhouette are normal. The lung fregoso are clear and without acute consolidation, effusion, or pneumothorax. The skeletal structures are intact and normal. Impression: 1. No acute cardiopulmonary process. Electronically Signed by Saurabh Allen MD 02/11/2019 12:09 P
[2019-02-11 13:33] LABS: BASO # 0.1 10^3/uL (0.0-0.2); BASO % 0.6 % (0.0-1.0); EOS # 0.1 10^3/uL (0.0-0.5); EOS % 1.5 % (0.0-3.0); HEMATOCRIT 53.7 % (42.0-52.0); HEMOGLOBIN 17.3 g/dl (13.5-17.5); LYMPH # 1.5 10^3/uL (1.5-5.0); LYMPH % 17.2 % (24.0-44.0); MEAN CORPUSCULAR HEMOGLOBIN 30.9 pg (27.0-33.0); MEAN CORPUSCULAR HGB CONC 32.2 g/dl (32.0-36.5); MEAN CORPUSCULAR VOLUME 96.1 fl (80.0-96.0); MONO # 0.6 10^3/uL (0.0-0.8); MONO % 6.7 % (0.0-5.0); NEUTROPHILS # 6.6 10^3/uL (1.5-8.5); NEUTROPHILS % 73.6 % (36.0-66.0); PLATELET COUNT, AUTOMATED 214 10^3/uL (150-450); RED BLOOD COUNT 5.59 10^6/uL (4.30-6.10)
[2019-02-11 13:44] LABS: INR 1.02; PARTIAL THROMBOPLASTIN TIME 39.2 SECONDS (25.0-38.4); PROTHROMBIN TIME 13.1 SECONDS (11.8-14.0)
[2019-02-11] MEDS ORDERED: KETOROLAC 30 MG/ML VIAL (J1885) IV ONE (14:00)
[2019-02-11 14:09] LABS: ALT/SGPT 38 U/L (12-78); BLOOD UREA NITROGEN 21 MG/DL (7-18); CARBON DIOXIDE LEVEL 30 MEQ/L (21-32); CHLORIDE LEVEL 104 MEQ/L (98-107); CREATININE FOR GFR 1.95 MG/DL (0.70-1.30); GLOMERULAR FILTRATION RATE 36.5 (>49); GLUCOSE, FASTING 101 MG/DL (70-100); POTASSIUM SERUM 3.8 MEQ/L (3.5-5.1); SODIUM LEVEL 143 MEQ/L (136-145)
[2019-02-11 14:10] LABS: ALBUMIN 4.4 GM/DL (3.2-5.2); BILIRUBIN,DIRECT 0.2 MG/DL (0.0-0.2); BILIRUBIN,TOTAL 0.6 MG/DL (0.2-1.0); CK-MB VALUE MASS 2.3 NG/ML (<3.6); CPK CREATINE PHOSPHOKINASE 139 U/L (39-308); FREE T4 1.07 NG/DL (0.76-1.46); LIPASE 122 U/L (73-393); MB/CK RELATIVE INDEX 1.65 (< OR =4); NT-PRO BNP 51 PG/ML (<125); THYROID STIMULATING HORMONE 0.613 uIU/ML (0.358-3.740); TOTAL PROTEIN 7.9 GM/DL (6.4-8.2); TROPONIN I < 0.02 NG/ML (< 0.10)
[2019-02-11 15:52] VITALS: BP 137/81
--- NOTE | 2019-02-11 17:15 | ECGEPIP ---
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
--- NOTE | 2019-02-12 10:43 | ED PDOC ---
Post-Departure Follow-Up dr velasco faxed fomral report of ct head for fu armeng Kash House MD Feb 12, 2019 10:43
== END 2019-02-11 15:54 | disposition home or self-care (01) ==
LOC: M ED 10:18
DX: R93.0 Abnormal findings on diagnostic imaging of skull and head, not elsewhere classified (principal); R20.2 Paresthesia of skin; N18.3 Chronic kidney disease, stage 3 (moderate); E78.5 Hyperlipidemia, unspecified; K21.9 Gastro-esophageal reflux disease without esophagitis; F31.9 Bipolar disorder, unspecified; N40.0 Benign prostatic hyperplasia without lower urinary tract symptoms; Z79.899 Other long term (current) drug therapy; Z79.82 Long term (current) use of aspirin

== ENCOUNTER → 2019-07-23 | Outpatient (CLI) | payer BC ==
[~2019-07-23] MED LIST changes: +EPLE50TA; +LAMO100T3
== END ==
LOC: M LAB 13:20
PROVIDERS: ATTEND Physician Assistant
DX: N40.0 Benign prostatic hyperplasia without lower urinary tract symptoms (principal); R97.20 Elevated prostate specific antigen [PSA]

== ENCOUNTER → 2019-12-19 | Outpatient (CLI) | payer BC ==
[~2019-12-19] MED LIST changes: -ASPI81TA85 PO; +ASPI81TA86 PO
== END ==
LOC: M LAB 10:15
PROVIDERS: ATTEND Urology
DX: R97.20 Elevated prostate specific antigen [PSA] (principal)

== ENCOUNTER → 2020-04-20 | Outpatient (CLI) | payer BC ==
[~2020-04-20] MED LIST changes: +HYDR-3490 PO; -HYDR25TAB PO
--- NOTE | 2020-04-20 15:02 | REPVR ---
PROCEDURE INFORMATION: Exam: MR Head Without Contrast; Internal Auditory Canals Exam date and time: 04/20/2020 2:46 PM Age: 69 years old Clinical indication: Other: Sensor neuro hearing loss jun TECHNIQUE: Imaging protocol: MR of the head without contrast. Exam focused on the internal auditory canals. 3D rendering (Not supervised by radiologist): MIP and/or 3D reconstructed images were created by the technologist. COMPARISON: MRI-Brain without Contrast 05/21/2016 6:32 PM FINDINGS: Brain: No acute infarct identified on the diffusion-weighted imaging. The T2 weighted imaging demonstrates foci of increased signal intensity in the deep white matter most likely representing mild chronic small vessel ischemic change. Large right temporoparietal arachnoid cyst is again demonstrated measuring approximately 11.2 x 7.8 cm on the sagittal imaging. Ventricles: Stable. No ventriculomegaly. Sinuses: Trace ethmoid and maxillary sinus mucosal thickening. Retention cysts or polyps in the maxillary sinuses. Mastoid air cells: Unremarkable. No effusions. Internal auditory canals: Unremarkable. 7th and 8th cranial nerves are unremarkable. No abnormal masses. A loop of the right AICA extends into the right IAC, likely incidental. Bones/joints: Chronic remodeling of the right parietal calvarium. IMPRESSION: 1. No acute intracranial abnormality. 2. No evidence of IAC mass. Electronically signed by: Jodee Borden On 04/20/2020 15:02:08 PM
== END ==
LOC: M RAD 13:24
PROVIDERS: ATTEND Otolaryngology
DX: H90.3 Sensorineural hearing loss, bilateral (principal)

== ENCOUNTER → 2020-09-15 | Outpatient (REF) | payer BC ==
[~2020-09-15] MED LIST changes: +ASPI-569 PO; -ASPI81TAEC PO
== END ==
LOC: M LAB REF 16:49
PROVIDERS: ATTEND Internal Medicine Nephrology
DX: E83.42 Hypomagnesemia (principal)

== ENCOUNTER → 2020-10-05 | Outpatient (CLI) | payer BC ==
--- NOTE | 2020-10-05 14:55 | REP ---
INDICATION: PAIN. COMPARISON: None. TECHNIQUE: Four views of the left hand attention 4th digit as per order FINDINGS: There is no acute fracture or destructive osseous lesion. IMPRESSION: Negative exam for acute abnormality. <Electronically signed by Christopher Cook > 10/05/20 [id number]
== END ==
LOC: M WUC 14:03
PROVIDERS: ATTEND Nurse Practitioner Family
DX: M79.644 Pain in right finger(s) (principal)

== ENCOUNTER → 2020-12-24 | Outpatient (CLI) | payer BC ==
[~2020-12-24] MED LIST changes: -KLOR10TA76 PO; +POTA-136 PO
== END ==
LOC: M LAB 10:38
PROVIDERS: ATTEND Physician Assistant
DX: R97.20 Elevated prostate specific antigen [PSA] (principal)

== ENCOUNTER → 2021-01-31 | Outpatient (CLI) | payer BC ==
[~2021-01-31] MED LIST changes: -TERB250T12 PO; +TERB250T91 PO
== END ==
LOC: M LAB 11:28
PROVIDERS: ATTEND Physician Assistant
DX: M10.071 Idiopathic gout, right ankle and foot (principal)

== ENCOUNTER 2021-02-25 12:57 | Emergency (ER) | payer BC ==
[~2021-02-25] VITALS: Ht 177.8 cm; Wt 80.1 kg
[2021-02-25] MEDS ORDERED: OMEP-173 (13:06)
[2021-02-25] MEDS ORDERED: TAMS1CAP17 (13:06)
[2021-02-25] MEDS ORDERED: NS 1,000 ML IV SCH (13:40)
[2021-02-25] MEDS ORDERED: MORPHINE 4 MG/ML 1ML VIAL/SYRINGE (J2270) IV ONE (13:40)
[2021-02-25 14:14] LABS: BASO % 0.4 % (0.0-1.0); EOS # 0.1 10^3/uL (0.0-0.5); HEMATOCRIT 46.3 % (42.0-52.0); HEMOGLOBIN 15.4 g/dl (13.5-17.5); LYMPH % 9.2 % (24.0-44.0); MEAN CORPUSCULAR HEMOGLOBIN 30.5 pg (27.0-33.0); MEAN CORPUSCULAR HGB CONC 33.3 g/dl (32.0-36.5); MEAN CORPUSCULAR VOLUME 91.7 fl (80.0-96.0); MONO # 0.6 10^3/uL (0.0-0.8); MONO % 5.8 % (2.0-8.0); NEUTROPHILS # 9.2 10^3/uL (1.5-8.5); NEUTROPHILS % 83.2 % (36.0-66.0); PLATELET COUNT, AUTOMATED 167 10^3/uL (150-450); RED BLOOD COUNT 5.05 10^6/uL (4.30-6.10); WHITE BLOOD COUNT 11.1 10^3/uL (4.0-10.0)
[2021-02-25 14:33] LABS: INR 1.02; PROTHROMBIN TIME 13.8 SECONDS (12.7-14.5)
[2021-02-25 14:38] LABS: CREATININE FOR GFR 1.76 MG/DL (0.70-1.30); GLOMERULAR FILTRATION RATE 40.8 (>42); POTASSIUM SERUM 3.6 MEQ/L (3.5-5.1)
[2021-02-25 14:39] LABS: ALBUMIN 3.7 GM/DL (3.2-5.2); BILIRUBIN,DIRECT 0.1 MG/DL (0.0-0.2); BILIRUBIN,TOTAL 0.4 MG/DL (0.2-1.0); CALCIUM LEVEL 9.7 MG/DL (8.8-10.2); TOTAL PROTEIN 6.8 GM/DL (6.4-8.2)
[2021-02-25] MEDS ORDERED: AUGMENTIN 875 MG TAB PO ONE (15:35)
[2021-02-25] MEDS ORDERED: AUGM875T28 PO (15:44)
[2021-02-25 16:08] VITALS: BP 165/74
== END 2021-02-25 16:17 | disposition home or self-care (01) ==
LOC: M ED 12:57
DX: K57.32 Diverticulitis of large intestine without perforation or abscess without bleeding (principal); N18.9 Chronic kidney disease, unspecified; E78.5 Hyperlipidemia, unspecified; Z79.899 Other long term (current) drug therapy

== ENCOUNTER → 2021-06-03 | Outpatient (CLI) | payer BC ==
[~2021-06-03] MED LIST changes: +AUGM875T28 PO; +OMEP-173; +TAMS1CAP17
== END ==
LOC: M WUC 09:20
DX: R97.20 Elevated prostate specific antigen [PSA] (principal); N40.0 Benign prostatic hyperplasia without lower urinary tract symptoms

== ENCOUNTER → 2021-12-09 | Outpatient (CLI) | payer BC | LOC: M LAB 12:04 | PROVIDERS: ATTEND Physician Assistant | DX: R97.20 Elevated prostate specific antigen [PSA] (principal) ==

== ENCOUNTER → 2022-06-28 | Outpatient (CLI) | payer BC ==
[~2022-06-28] MED LIST changes: +DESM0.1T16 PO; -DESM0.1T2 PO
== END ==
LOC: M LAB 16:24
PROVIDERS: ATTEND Physician Assistant
DX: Z87.898 Personal history of other specified conditions (principal)

== ENCOUNTER → 2022-12-27 | Outpatient (CLI) | payer BC | LOC: M LAB 16:05 | PROVIDERS: ATTEND Physician Assistant | DX: R97.20 Elevated prostate specific antigen [PSA] (principal) ==

== ENCOUNTER → 2023-07-30 | Outpatient (CLI) | payer BC ==
[~2023-07-30] MED LIST changes: -EPLE50TA; +EPLE50TA8
== END ==
LOC: M LAB 12:43
PROVIDERS: ATTEND Physician Assistant
DX: R97.20 Elevated prostate specific antigen [PSA] (principal)

== ENCOUNTER → 2023-09-11 | Outpatient (CLI) | payer BC | LOC: M WUC 15:53 | PROVIDERS: ATTEND Internal Medicine | DX: M54.31 Sciatica, right side (principal); M47.896 Other spondylosis, lumbar region; M41.86 Other forms of scoliosis, lumbar region ==

== ENCOUNTER → 2024-01-28 | Outpatient (CLI) | payer BC ==
[~2024-01-28] MED LIST changes: +EPLE50TA12; -EPLE50TA8
== END ==
LOC: M LAB 10:14
PROVIDERS: ATTEND Physician Assistant
DX: R97.20 Elevated prostate specific antigen [PSA] (principal)

== ENCOUNTER 2024-04-28 10:03 | Inpatient (IN) | payer BC ==
[~2024-04-28] VITALS: Ht 177.8 cm; Wt 73.8 kg
[~2024-04-28 10:03] MED LIST changes: -OMEP-173; +OMEP-173 PO
[2024-04-28] MEDS ORDERED: D3 H2000 PO (10:28)
[2024-04-28] MEDS ORDERED: CIDA500T2 PO (10:28)
[2024-04-28] MEDS ORDERED: CVS10CAP7 PO (10:28)
[2024-04-28] MEDS ORDERED: MULT-90 PO (10:28)
[2024-04-28] MEDS ORDERED: ALFU10TA23 PO (10:28)
[2024-04-28 11:06] LABS: BASO # 0.1 10^3/uL (0.0-0.2); BASO % 0.3 % (0.0-1.0); HEMATOCRIT 43.1 % (42.0-52.0); HEMOGLOBIN 14.6 g/dl (13.5-17.5); LYMPH # 0.6 10^3/uL (1.5-5.0); LYMPH % 2.3 % (24.0-44.0); MEAN CORPUSCULAR HEMOGLOBIN 30.2 pg (27.0-33.0); MEAN CORPUSCULAR HGB CONC 33.9 g/dl (32.0-36.5); MEAN CORPUSCULAR VOLUME 89.2 fl (80.0-96.0); MONO # 1.6 10^3/uL (0.0-0.8); MONO % 6.1 % (2.0-8.0); NEUTROPHILS # 23.3 10^3/uL (1.5-8.5); NEUTROPHILS % 90.6 % (36.0-66.0); PLATELET COUNT, AUTOMATED 328 10^3/uL (150-450); RED BLOOD COUNT 4.83 10^6/uL (4.30-6.10); WHITE BLOOD COUNT 25.8 10^3/uL (4.0-10.0)
[2024-04-28 11:13] LABS: KETONE, URINE AUTO RFX NEGATIVE (NEGATIVE); LEUKOCYTE ESTERASE UR AUTO RFX NEGATIVE (NEGATIVE); NITRITE, URINE AUTO RFX NEGATIVE (NEGATIVE); RBC, URINE AUTO RFX 0 /HPF (0-3); SQUAM EPITHELIAL CELL UR AURFX 0 /HPF (0-6); WBC, URINE AUTO RFX 0 /HPF (0-3)
[2024-04-28 11:26] LABS: BILIRUBIN,DIRECT 0.2 MG/DL (<0.4); BILIRUBIN,TOTAL 0.6 MG/DL (0.3-1.2); CALCIUM LEVEL 9.6 MG/DL (8.3-10.6); CREATININE FOR GFR 1.96 MG/DL (0.70-1.30); GLOMERULAR FILTRATION RATE 35.8 (>42); POTASSIUM SERUM 4.6 MMOL/L (3.5-5.1); TOTAL PROTEIN 7.2 G/DL (5.7-8.2)
[2024-04-28] MEDS: PIPERACILLIN/TAZOBACTAM SOD 3.375 GM in DEXTROSE 5% (D5W) ADV/MINI-BAG 50 ML IV ONE (19:17)
[2024-04-28] MEDS ORDERED: ACET650T61 PO (19:17)
[2024-04-28] MEDS ORDERED: OPTIMIS PO (19:17)
[2024-04-28] MEDS: NS (Normal Saline) 0.9% 1,000 ML IV ONE ×2 (19:17→21:19)
[2024-04-28] MEDS ORDERED: FAMO10TA52 PO (19:19)
[2024-04-28] MEDS ORDERED: ECOT81TA5 PO (19:19)
[2024-04-28] MEDS ORDERED: HOME MED LIST COMPLETE! XX SCH (19:20)
[2024-04-28] MEDS ORDERED: ISOVUE-370 76% 100ML VIAL As Ordered ONE (19:31)
[2024-04-28] MEDS ORDERED: HEPARIN SOD (PORCINE) 5000UNITS/ML 1ML VIAL/SYRINGE IV PRN (20:30)
[2024-04-28] MEDS ORDERED: MAALOX 30 ML SUSP *UDC PO PRN (20:30)
[2024-04-28] MEDS ORDERED: MOM 30ML SUSPENSION UDC PO PRN (20:30)
[2024-04-28] MEDS: DOCUSATE SODIUM 100MG CAPSULE PO SCH (22:02)
[2024-04-28] MEDS: NS (Normal Saline) 0.9% 1,000 ML IV SCH (22:03)
[2024-04-28 22:08] LABS: HEMATOCRIT 40.2 % (42.0-52.0); HEMOGLOBIN 13.6 g/dl (13.5-17.5); MEAN CORPUSCULAR HEMOGLOBIN 30.5 pg (27.0-33.0); MEAN CORPUSCULAR HGB CONC 33.8 g/dl (32.0-36.5); MEAN CORPUSCULAR VOLUME 90.1 fl (80.0-96.0); PLATELET COUNT, AUTOMATED 305 10^3/uL (150-450); RED BLOOD COUNT 4.46 10^6/uL (4.30-6.10); WHITE BLOOD COUNT 22.2 10^3/uL (4.0-10.0)
[2024-04-28] MEDS: HEPARIN DRIP 25,000 UNITS in IV 1 EA IV SCH (22:08)
[2024-04-28] MEDS: HEPARIN SOD (PORCINE) 5000UNITS/ML 1ML VIAL/SYRINGE IV ONE (22:09)
[2024-04-28 22:50] VITALS: BP 164/87; TEMP 98.6; O2SAT 93
[2024-04-28] MEDS: PIPERACILLIN/TAZOBACTAM SOD 4.5 GM in DEXTROSE 5% (D5W) ADV/MINI-BAG 50 ML IV SCH (23:35)
[2024-04-29 04:50] VITALS: BP 134/73; TEMP 98.2; O2SAT 93
[2024-04-29] MEDS: HEPARIN SOD (PORCINE) 5000UNITS/ML 1ML VIAL/SYRINGE SQ SCH (05:09)
[2024-04-29 06:06] LABS: HEMATOCRIT 41.7 % (42.0-52.0); HEMOGLOBIN 13.7 g/dl (13.5-17.5); MEAN CORPUSCULAR HEMOGLOBIN 30.2 pg (27.0-33.0); MEAN CORPUSCULAR HGB CONC 32.9 g/dl (32.0-36.5); MEAN CORPUSCULAR VOLUME 91.9 fl (80.0-96.0); PLATELET COUNT, AUTOMATED 298 10^3/uL (150-450); RED BLOOD COUNT 4.54 10^6/uL (4.30-6.10)
[2024-04-29 06:42] LABS: ALBUMIN 2.5 G/DL (3.2-5.2); BILIRUBIN,TOTAL 0.5 MG/DL (0.3-1.2); CALCIUM LEVEL 8.9 MG/DL (8.3-10.6); CREATININE FOR GFR 1.83 MG/DL (0.70-1.30); GLOMERULAR FILTRATION RATE 38.7 (>42); MAGNESIUM LEVEL 2.2 MG/DL (1.8-2.4); POTASSIUM SERUM 3.9 MMOL/L (3.5-5.1); TOTAL PROTEIN 6.2 G/DL (5.7-8.2)
[2024-04-29] MEDS: PANTOPRAZOLE 40MG VIAL IV SCH (08:10)
[2024-04-29] MEDS: NS 0.45% 1,000 ML IV SCH (10:23)
[2024-04-29 12:00] VITALS: BP 135/71; TEMP 98.8; O2SAT 96
[2024-04-29] MEDS ORDERED: PERCOCET 5MG/325MG TAB PO PRN ×2 (15:50)
[2024-04-29 19:43] VITALS: BP 136/71; TEMP 98.8; O2SAT 94
[2024-04-29 20:00] VITALS: O2SAT 94
[2024-04-29] MEDS: ASPIRIN 81MG ENTERIC TABLET PO SCH (21:08)
[2024-04-29] MEDS: ATORVASTATIN 10 MG TAB PO SCH (21:08)
[2024-04-29] MEDS: lamoTRIgine 100MG TAB PO SCH (21:08)
[2024-04-29] MEDS: FINASTERIDE 5MG TAB PO SCH (21:09)
[2024-04-29] MEDS: FAMOTIDINE 20 MG TAB PO SCH (21:10)
[2024-04-29] MEDS: OMEPRAZOLE 20MG CAP PO SCH (21:10)
[2024-04-30 04:00] VITALS: BP 132/69; TEMP 98.4; O2SAT 96
[2024-04-30] MEDS ORDERED: HEPARIN SOD (PORCINE) 5000UNITS/ML 1ML VIAL/SYRINGE IV PRN (07:10)
[2024-04-30 07:35] LABS: BASO # 0.1 10^3/uL (0.0-0.2); BASO % 0.4 % (0.0-1.0); EOS # 0.2 10^3/uL (0.0-0.5); EOS % 0.9 % (0.0-3.0); HEMATOCRIT 42.9 % (42.0-52.0); HEMOGLOBIN 13.8 g/dl (13.5-17.5); LYMPH # 1.2 10^3/uL (1.5-5.0); LYMPH % 6.4 % (24.0-44.0); MEAN CORPUSCULAR HEMOGLOBIN 29.9 pg (27.0-33.0); MEAN CORPUSCULAR HGB CONC 32.2 g/dl (32.0-36.5); MEAN CORPUSCULAR VOLUME 93.1 fl (80.0-96.0); MONO # 0.8 10^3/uL (0.0-0.8); MONO % 4.4 % (2.0-8.0); NEUTROPHILS # 16.8 10^3/uL (1.5-8.5); NEUTROPHILS % 87.3 % (36.0-66.0); PLATELET COUNT, AUTOMATED 364 10^3/uL (150-450); RED BLOOD COUNT 4.61 10^6/uL (4.30-6.10); WHITE BLOOD COUNT 19.2 10^3/uL (4.0-10.0)
[2024-04-30 08:10] LABS: ALBUMIN 2.5 G/DL (3.2-5.2); BILIRUBIN,DIRECT 0.3 MG/DL (<0.4); BILIRUBIN,TOTAL 0.7 MG/DL (0.3-1.2); CALCIUM LEVEL 8.9 MG/DL (8.3-10.6); CREATININE FOR GFR 1.69 MG/DL (0.70-1.30); GLOMERULAR FILTRATION RATE 42.4 (>42); POTASSIUM SERUM 3.8 MMOL/L (3.5-5.1); TOTAL PROTEIN 6.8 G/DL (5.7-8.2)
[2024-04-30] MEDS: HEPARIN SOD (PORCINE) 5000UNITS/ML 1ML VIAL/SYRINGE IV ONE (08:24)
[2024-04-30] MEDS: HEPARIN DRIP 25,000 UNITS in IV 1 EA IV SCH (08:27)
[2024-04-30] MEDS ORDERED: PILL CUTTER 1 EACH XX ONE (08:50)
[2024-04-30] MEDS: VITAMIN D 1,000 INTERNATIONAL UNITS TABLET PO SCH (09:04)
[2024-04-30 10:38] VITALS: BP 122/68; TEMP 98.6; O2SAT 98
[2024-04-30] MEDS: D5W 1,000 ML IV SCH (10:39)
[2024-04-30 20:00] VITALS: BP 126/66; TEMP 97.9; O2SAT 97
[2024-04-30] MEDS: ALFUZOSIN 10 MG PO SCH (20:39)
[2024-05-01 04:00] VITALS: BP 122/67; TEMP 97.9; O2SAT 97
[2024-05-01 05:58] LABS: BASO # 0.1 10^3/uL (0.0-0.2); BASO % 0.4 % (0.0-1.0); EOS # 0.4 10^3/uL (0.0-0.5); HEMATOCRIT 37.6 % (42.0-52.0); HEMOGLOBIN 12.7 g/dl (13.5-17.5); LYMPH # 1.4 10^3/uL (1.5-5.0); LYMPH % 11.6 % (24.0-44.0); MEAN CORPUSCULAR HEMOGLOBIN 30.5 pg (27.0-33.0); MEAN CORPUSCULAR HGB CONC 33.8 g/dl (32.0-36.5); MEAN CORPUSCULAR VOLUME 90.2 fl (80.0-96.0); NEUTROPHILS # 9.5 10^3/uL (1.5-8.5); NEUTROPHILS % 76.4 % (36.0-66.0); PLATELET COUNT, AUTOMATED 319 10^3/uL (150-450); RED BLOOD COUNT 4.17 10^6/uL (4.30-6.10); WHITE BLOOD COUNT 12.4 10^3/uL (4.0-10.0)
[2024-05-01 06:56] LABS: BILIRUBIN,DIRECT 0.2 MG/DL (<0.4); BILIRUBIN,TOTAL 0.6 MG/DL (0.3-1.2); CREATININE FOR GFR 1.61 MG/DL (0.70-1.30); GLOMERULAR FILTRATION RATE 44.9 (>42); POTASSIUM SERUM 3.4 MMOL/L (3.5-5.1); TOTAL PROTEIN 5.7 G/DL (5.7-8.2)
[2024-05-01] MEDS: OMEPRAZOLE 20MG CAP PO SCH (08:29)
[2024-05-01] MEDS: APIXABAN 5 MG TAB (ELIQUIS) PO SCH (08:30)
[2024-05-01 08:31] VITALS: BP 115/64; TEMP 97.7; O2SAT 97
[2024-05-01] MEDS: POTASSIUM CHLORIDE 10MEQ SR TABLET PO SCH (08:37)
[2024-05-01 12:30] VITALS: BP 140/75; TEMP 97.9; O2SAT 94
[2024-05-01 16:00] VITALS: BP 121/79; TEMP 98.1; O2SAT 96
[2024-05-01 19:29] VITALS: BP 127/74; TEMP 97.9; O2SAT 98
[2024-05-01 23:53] VITALS: BP 127/73; TEMP 97.9; O2SAT 94
[2024-05-02 04:00] VITALS: BP 132/66; TEMP 97.9; O2SAT 96
[2024-05-02 06:26] LABS: BASO # 0.1 10^3/uL (0.0-0.2); BASO % 0.5 % (0.0-1.0); EOS # 0.4 10^3/uL (0.0-0.5); EOS % 3.7 % (0.0-3.0); HEMATOCRIT 39.5 % (42.0-52.0); HEMOGLOBIN 13.3 g/dl (13.5-17.5); LYMPH # 1.3 10^3/uL (1.5-5.0); LYMPH % 11.5 % (24.0-44.0); MEAN CORPUSCULAR HGB CONC 33.7 g/dl (32.0-36.5); MONO # 0.9 10^3/uL (0.0-0.8); MONO % 7.7 % (2.0-8.0); NEUTROPHILS # 8.4 10^3/uL (1.5-8.5); NEUTROPHILS % 75.7 % (36.0-66.0); PLATELET COUNT, AUTOMATED 339 10^3/uL (150-450); RED BLOOD COUNT 4.44 10^6/uL (4.30-6.10); WHITE BLOOD COUNT 11.1 10^3/uL (4.0-10.0)
[2024-05-02 06:50] LABS: ALBUMIN 2.2 G/DL (3.2-5.2); BILIRUBIN,DIRECT 0.2 MG/DL (<0.4); BILIRUBIN,TOTAL 0.6 MG/DL (0.3-1.2); CALCIUM LEVEL 8.8 MG/DL (8.3-10.6); CREATININE FOR GFR 1.71 MG/DL (0.70-1.30); GLOMERULAR FILTRATION RATE 41.9 (>42); TOTAL PROTEIN 5.9 G/DL (5.7-8.2)
[2024-05-02] MEDS: ACETAMINOPHEN 325 MG TAB PO PRN (08:20)
[2024-05-02 09:00] VITALS: BP 122/78; TEMP 97.8; O2SAT 98
[2024-05-02] MEDS: PINK BISMUTH SUSP 524MG/30ML ORAL SYRINGE PO SCH (11:36)
[2024-05-02 13:28] VITALS: BP 139/71; TEMP 98.4; O2SAT 98
[2024-05-02] MEDS: AUGMENTIN 875 MG TAB PO SCH (14:47)
[2024-05-02 19:45] VITALS: BP 133/72; TEMP 98.1; O2SAT 93
[2024-05-02 23:06] VITALS: BP 133/71; TEMP 98.1; O2SAT 98
[2024-05-03 03:52] VITALS: BP 131/70; TEMP 98.1; O2SAT 98
[2024-05-03 06:40] LABS: BASO # 0.1 10^3/uL (0.0-0.2); BASO % 0.6 % (0.0-1.0); EOS # 0.4 10^3/uL (0.0-0.5); EOS % 3.3 % (0.0-3.0); HEMATOCRIT 43.7 % (42.0-52.0); HEMOGLOBIN 14.5 g/dl (13.5-17.5); LYMPH # 1.6 10^3/uL (1.5-5.0); MEAN CORPUSCULAR HEMOGLOBIN 30.3 pg (27.0-33.0); MEAN CORPUSCULAR HGB CONC 33.2 g/dl (32.0-36.5); MEAN CORPUSCULAR VOLUME 91.4 fl (80.0-96.0); MONO # 0.8 10^3/uL (0.0-0.8); NEUTROPHILS # 9.5 10^3/uL (1.5-8.5); NEUTROPHILS % 75.4 % (36.0-66.0); PLATELET COUNT, AUTOMATED 378 10^3/uL (150-450); RED BLOOD COUNT 4.78 10^6/uL (4.30-6.10); WHITE BLOOD COUNT 12.6 10^3/uL (4.0-10.0)
[2024-05-03 07:11] LABS: ALBUMIN 2.5 G/DL (3.2-5.2); BILIRUBIN,DIRECT 0.2 MG/DL (<0.4); BILIRUBIN,TOTAL 0.4 MG/DL (0.3-1.2); CALCIUM LEVEL 9.4 MG/DL (8.3-10.6); CREATININE FOR GFR 1.75 MG/DL (0.70-1.30); GLOMERULAR FILTRATION RATE 40.8 (>42); POTASSIUM SERUM 3.7 MMOL/L (3.5-5.1); TOTAL PROTEIN 6.6 G/DL (5.7-8.2)
[2024-05-03 08:07] VITALS: BP 126/69; TEMP 98.1; O2SAT 96
[2024-05-03 12:16] VITALS: BP 144/72; TEMP 97.9; O2SAT 96
[2024-05-03 12:38] LABS: CLOSTRIDIUM DIFFICILE PCR NEGATIVE (NEGATIVE)
[2024-05-03] MEDS ORDERED: AMOX875T2 PO (15:31)
[2024-05-03] MEDS ORDERED: ELIQ5TAB PO (15:31)
== END 2024-05-03 16:10 | disposition home or self-care (01) | DRG 244 ==
LOC: M ED 10:03 → M ED INP 20:26 → M MS5PR 22:50
PROVIDERS: ADMIT Family Medicine; ATTEND Student in an Organized Health Care Education/Training Program
DX: K57.32 Diverticulitis of large intestine without perforation or abscess without bleeding (principal); K55.9 Vascular disorder of intestine, unspecified; E87.0 Hyperosmolality and hypernatremia; I80.8 Phlebitis and thrombophlebitis of other sites; E11.22 Type 2 diabetes mellitus with diabetic chronic kidney disease; N18.30 Chronic kidney disease, stage 3 unspecified; D64.9 Anemia, unspecified; N25.1 Nephrogenic diabetes insipidus; K52.1 Toxic gastroenteritis and colitis; F31.9 Bipolar disorder, unspecified; R97.20 Elevated prostate specific antigen [PSA]; E78.5 Hyperlipidemia, unspecified; N40.0 Benign prostatic hyperplasia without lower urinary tract symptoms; E87.6 Hypokalemia; T36.95XA Adverse effect of unspecified systemic antibiotic, initial encounter; K21.9 Gastro-esophageal reflux disease without esophagitis; Z79.82 Long term (current) use of aspirin; Z79.899 Other long term (current) drug therapy; Z88.8 Allergy status to other drugs, medicaments and biological substances

== ENCOUNTER → 2024-06-23 | Outpatient (CLI) | payer BC ==
[~2024-06-23] MED LIST changes: +ACET650T61 PO; +ALFU10TA23 PO; +AMOX875T2 PO; +CIDA500T2 PO; +CVS10CAP7 PO; +D3 H2000 PO; +ECOT81TA5 PO; +ELIQ5TAB PO; +FAMO10TA52 PO; +MULT-90 PO; +OPTIMIS PO
== END ==
LOC: M PLARAD 10:23
PROVIDERS: ATTEND Internal Medicine Critical Care Medicine
DX: R91.8 Other nonspecific abnormal finding of lung field (principal)

== ENCOUNTER → 2024-07-21 | Outpatient (CLI) | payer BC | LOC: M LAB 15:21 | PROVIDERS: ATTEND Physician Assistant | DX: R97.20 Elevated prostate specific antigen [PSA] (principal) ==

== ENCOUNTER 2024-10-30 08:46 | Emergency (ER) | payer MEDICARE ==
[~2024-10-30] VITALS: Ht 177.8 cm; Wt 77.4 kg
[~2024-10-30 08:46] MED LIST changes: +ELIQ2.5T PO; -LAMO100T3; +LAMO100T3 PO; +META28.32 PO; +POTA1TAB23 PO; +RISATAB3 PO
[2024-10-30] MEDS ORDERED: NOXI1TAB PO (08:57)
[2024-10-30] MEDS ORDERED: POTA10CA70 PO (08:57)
[2024-10-30] MEDS ORDERED: LAMO100T80 PO (08:57)
[2024-10-30] MEDS ORDERED: ASPI81TA26 PO (08:57)
[2024-10-30] MEDS ORDERED: [UNRECOGNIZED DRUG - OTHER] (08:57)
[2024-10-30] MEDS ORDERED: ALFU10TA23 PO (08:57)
[2024-10-30] MEDS ORDERED: EPLE50TA12 PO (08:57)
[2024-10-30] MEDS ORDERED: ELIQ5TAB PO (08:57)
[2024-10-30 09:32] LABS: BASO # 0.1 10^3/uL (0.0-0.2); BASO % 0.9 % (0.0-1.0); EOS # 0.2 10^3/uL (0.0-0.5); EOS % 3.0 % (0.0-3.0); LYMPH # 1.5 10^3/uL (1.5-5.0); LYMPH % 20.8 % (24.0-44.0); MONO # 0.5 10^3/uL (0.0-0.8); MONO % 6.7 % (2.0-8.0); NEUTROPHILS # 4.8 10^3/uL (1.5-8.5); NEUTROPHILS % 68.3 % (36.0-66.0); PLATELET COUNT, AUTOMATED 171 10^3/uL (150-450)
[2024-10-30] MEDS ORDERED: GNP1000T11 PO (09:36)
[2024-10-30] MEDS ORDERED: HOME MED LIST COMPLETE! XX SCH (09:40)
[2024-10-30 09:54] LABS: ALT/SGPT 23.0 U/L (7.0-40); AST/SGOT 21.0 U/L (<34); CALCIUM LEVEL 9.8 MG/DL (8.3-10.6); CARBON DIOXIDE LEVEL 27.0 MMOL/L (20-31); CHLORIDE LEVEL 109.0 MMOL/L (98-107); CREATININE FOR GFR 1.77 MG/DL (0.70-1.30); GLOMERULAR FILTRATION RATE 39.8 (>42); POTASSIUM SERUM 4.4 MMOL/L (3.5-5.1); SODIUM LEVEL 147.0 MMOL/L (136-145)
[2024-10-30] MEDS: NS 500 ML IV ONE (10:45)
[2024-10-30] MEDS ORDERED: ISOVUE-370 76% 100 ML VIAL As Ordered ONE (10:52)
[2024-10-30 12:37] VITALS: BP 136/72; TEMP 97.9; O2SAT 96
== END 2024-10-30 12:39 | disposition home or self-care (01) ==
LOC: MERGE 08:46 → M ED 08:46
DX: R10.9 Unspecified abdominal pain (principal); K57.90 Diverticulosis of intestine, part unspecified, without perforation or abscess without bleeding; I10 Essential (primary) hypertension; E78.5 Hyperlipidemia, unspecified; F31.9 Bipolar disorder, unspecified; Z88.8 Allergy status to other drugs, medicaments and biological substances; Z79.1 Long term (current) use of non-steroidal anti-inflammatories (NSAID); Z79.01 Long term (current) use of anticoagulants; Z79.899 Other long term (current) drug therapy; Z79.810 Long term (current) use of selective estrogen receptor modulators (SERMs)
CPT/HCPCS: 74177; 80047; 80048; 80076; 83690; 85025; 96360; 96361; 99284; Q9967

== ENCOUNTER → 2025-01-27 | Outpatient (CLI) | payer MEDICARE ==
[~2025-01-27] MED LIST changes: +ASPI81TA26 PO; +EPLE50TA12 PO; +GNP1000T11 PO; +LAMO100T80 PO; +NOXI1TAB PO; +POTA10CA70 PO; +[UNRECOGNIZED DRUG - OTHER]
== END ==
LOC: M RAD 07:47
PROVIDERS: ATTEND Internal Medicine Critical Care Medicine
DX: R91.8 Other nonspecific abnormal finding of lung field (principal)

== ENCOUNTER → 2025-02-11 | Outpatient (CLI) | payer MEDICARE | LOC: M LAB 15:41 | PROVIDERS: ATTEND Physician Assistant | DX: R97.20 Elevated prostate specific antigen [PSA] (principal) ==